=== PATIENT | female | born 1995 | race Caucasian/White ===

== ENCOUNTER 2016-07-11 09:47 | Day surgery (SDC) | payer OTHER, MEDICAID ==
[2016-07-05 10:58] LABS: ABSOLUTE EOSINOPHILS # (AUTO) 0.1 10^3/uL (0.0-0.6); ABSOLUTE MONOCYTES (AUTO) 0.3 10^3/uL (0.1-1.4); ABSOLUTE NEUT (AUTO) 2.2 10^3/uL (1.7-8.2); BASOPHILS % (AUTO) 0.4 % (0-2); EOSINOPHILS % (AUTO) 3.2 % (0-6); HEMATOCRIT 34.3 % (36.0-47.0); HEMOGLOBIN 11.6 g/dL (12.0-15.5); HGB HCT DIFFERENCE 0.5; LYMPHOCYTES % (AUTO) 42.2 % (13-45); MEAN CORPUSCULAR HEMOGLOBIN 30.6 pg (27.0-33.4); MEAN CORPUSCULAR HGB CONC 33.9 g/dL (32.0-36.0); MEAN CORPUSCULAR VOLUME 91 fl (80-97); MONOCYTES % (AUTO) 6.6 % (3-13); RED BLOOD COUNT 3.79 10^6/uL (3.72-5.28); RED CELL DISTRIBUTION WIDTH 15.2 % (11.5-14.0); SEGMENTED NEUTROPHILS % (AUTO) 47.6 % (42-78); WHITE BLOOD COUNT 4.6 10^3/uL (4.0-10.5)
[2016-07-05 11:01] LABS: APPEARANCE,URINE CLEAR; BILIRUBIN,URINE NEGATIVE (NEGATIVE); GLUCOSE, URINE NEGATIVE (NEGATIVE); KETONES,URINE NEGATIVE (NEGATIVE); LEUKOCYTE ESTERASE,URINE TRACE (NEGATIVE); NITRITE,URINE NEGATIVE (NEGATIVE); PROTEIN,URINE NEGATIVE (NEGATIVE); URINE SPECIFIC GRAVITY 1.017; UROBILINOGEN,URINE NEGATIVE mg/dL (<2.0)
[~2016-07-11 09:47] MED LIST: LACTATED RINGERS 1000 ML IV PRN; LIDOCAINE 0.5% INJ-PF (5 MG/ML) 50 ML SDV SUBCUT PRN
[2016-07-11] MEDS ORDERED: MIDAZOLAM 2 MG/2 ML INJ ONE ×2 (11:04→13:42)
[2016-07-11] MEDS ORDERED: FAMOTIDINE INJ/PF 20 MG/2 ML SDV IV ONE (11:04)
[2016-07-11] MEDS ORDERED: PROPOFOL INJ 200 MG/20 ML VIAL IV ONE (13:43)
[2016-07-11] MEDS ORDERED: FENTANYL CITRATE INJ/PF 100 MCG/2 ML AMPUL ONE (13:43)
[2016-07-11] MEDS ORDERED: HYDROMORPHONE HCL INJ/PF 2 MG/ML AMPULE ONE ×2 (13:53→15:34)
[2016-07-11] MEDS ORDERED: MEPERIDINE HCL/PF INJ 25 MG/1 ML DISP.SYRIN IV PRN (14:10)
[2016-07-11] MEDS ORDERED: DIPHENHYDRAMINE HCL 50 MG/ML VIAL IV PRN (14:10)
[2016-07-11] MEDS ORDERED: PROMETHAZINE HCL INJ 25 MG/1 ML VIAL IV PRN ×2 (14:10)
--- NOTE | 2016-07-11 14:58 | OPERATIVE REPORT E ---
Operative Report NAME: ANGELLA AGARWAL : 1995 AGE: 20Y DATE OF SURGERY: 07/11/2016 ROOM: PREOPERATIVE DIAGNOSIS: Multiple medical comorbidities and undesired fertility. POSTOPERATIVE DIAGNOSIS: Multiple medical comorbidities and undesired fertility. PROCEDURE: Laparoscopic tubal cauterization. SURGEON: KRISTIAN BROOKS M.D. CUT OUT AND MARKING MACHINE OPERATOR: Quiana Bach, carpenter's assistant student. ANESTHESIA: Dr. Escamilla with general endotracheal. FINDINGS: Normal uterus, tubes and ovaries. Multiple adhesions in the upper abdomen. Gallbladder is absent. Noted to have small amount of endometrial implants in posterior cul-de-sac near the uterosacral ligaments. ESTIMATED BLOOD LOSS: 10 mL. SPECIMENS REMOVED: None. 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 She has undergone multiple abdominal surgeries for this condition, has been diagnosed again with liver cancer as well as gallbladder cancer. She has had to have chemo and radiation multiple times. She has consulted with her oncologist who indicates that her ability to bear children would increase her risk of mortality; therefore, she and her mother came to the office seeking advice from Dr. Hurt and desiring permanent sterilization in order to avoid . Dr. Hurt met with both of them on 2 occasions at least in the office, and the patient indicated that she did not feel it would be safe for her to carry a . She indicated this to me today just prior to her surgery and her mother was there and in agreement. Therefore, we went ahead with permanent sterilization. She was counseled extensively on each of these occasions on the availability of long-acting reversible contraception and she declined at all 3 occasions. PROCEDURE IN DETAIL: The patient was taken to the operating room, prepared and draped in a normal sterile fashion in dorsal lithotomy position under sterile conditions. The bladder was emptied of approximately 150 mL of clear urine. A sterile speculum was placed in the vagina and the cervix was prepped with Betadine. The cervix was then grasped on the anterior lip with a single-tooth tenaculum and a Hulka clamp was placed through the cervix for uterine manipulation. The speculum was removed, gloves were changed, and attention was then turned to the upper portion of the case where a supraumbilical skin incision was made just below the umbilicus, through which a cut-down procedure was performed to enter the peritoneal cavity. This was done with care and with no evidence of injury. A blunt trocar was placed through the opening and the abdomen was insufflated with approximately 1 L of CO2 gas to a pressure of 15 mmHg. The camera was introduced, the patient was placed in Trendelenburg, and the above findings were noted. We then placed another 5-mm port midline just above the bladder for the Kleppinger to manipulate through. The uterus was elevated and the Kleppinger was introduced. At this point the patient began to show some evidence of bradycardia so we did deflate the abdomen and paused the case while the patient was recovered by Anesthesia. This was done successfully. We did not insufflate any further, however, as visualization was adequate, and the Kleppinger was used to burn approximately 3 cm on each fallopian tube with good cautery noted. The Kleppinger was removed and the trocars were then removed without difficulty. The skin was then closed at both sites using 4-0 Vicryl. The patient tolerated the procedure well. Sponge, lap, and needle counts were correct x2. The patient was taken to recovery in stable condition. DICTATING PHYSICIAN: KRISTIAN BROOKS M.D. [id number] PHY#: [id number] ID: [id number] JOB#: [id number] ACCT: [id number] cc:KRISTIAN BROOKS M.D. >
[2016-07-11] MEDS ORDERED: MORPHINE SULFATE 10 MG/ML INJ ONE (15:13)
[2016-07-11] MEDS ORDERED: OXYCODONE-ACETAMINOPHEN 5-325 MG TABLET PO PRN ×2 (15:17→15:18)
[2016-07-11] MEDS ORDERED: IBUPROFEN 800 MG TABLET PO PRN (15:17)
[2016-07-11] MEDS ORDERED: GLYCOPYRROLATE INJ 0.4 MG/2 ML VIAL ONE (16:16)
[2016-07-11] MEDS ORDERED: KETOROLAC TROMETHAMINE 60 MG/2 ML SDV ONE (16:16)
[2016-07-11] MEDS ORDERED: ONDANSETRON HCL INJ/PF 4 MG/2 ML SDV ONE (16:16)
[2016-07-11] MEDS ORDERED: DEXAMETHASONE SOD PHOSPHATE INJ 4 MG/1 ML VIAL ONE (16:16)
[2016-07-11] MEDS ORDERED: SUCCINYLCHOLINE CHLORIDE INJ 200 MG/10 ML VIAL ONE (16:16)
[2016-07-11] MEDS ORDERED: KETOROLAC TROMETHAMINE INJ/PF 30 MG/1 ML SDV ONE (16:25)
[2016-07-11 17:22] VITALS: BP 111/79
== END 2016-07-11 17:25 | disposition home or self-care (01) ==
LOC: OROUT 09:47
PROVIDERS: ATTEND Obstetrics & Gynecology
PROC: 0U574ZZ Destruction of Bilateral Fallopian Tubes, Percutaneous Endoscopic Approach (ICD-10-PCS; principal; 2016-07-11 11:45)
DX: Z30.2 Encounter for sterilization (principal); Z85.05 Personal history of malignant neoplasm of liver; Z88.8 Allergy status to other drugs, medicaments and biological substances; Z87.892 Personal history of anaphylaxis; Z91.041 Radiographic dye allergy status; Z85.028 Personal history of other malignant neoplasm of stomach
CPT/HCPCS: 36415; 85025; 81005; 81025; 58670; J2250; J1100; J1885 ×2; J3010; J2270; J1170; J0330; J2405; J2704; S0028; 851

== ENCOUNTER 2020-05-11 02:44 | Inpatient (IN) | payer SELFPAY ==
[2020-05-11] MEDS ORDERED: NORMAL SALINE 1000 ML 1,000 ML IV ONE ×2 (04:41→06:46)
[2020-05-11] MEDS ORDERED: PROMETHAZINE HCL INJ 25 MG/1 ML VIAL IV ONE ×3 (04:41→12:02)
[2020-05-11] MEDS ORDERED: MORPHINE SULFATE 10 MG/ML INJ IV ONE ×4 (04:42→12:02)
--- NOTE | 2020-05-11 04:48 | ER Document Report ---
ED GI/ - General Mode of Arrival: Medic Information source: Patient TRAVEL OUTSIDE OF THE [place] IN LAST 30 DAYS: No - HPI Patient complains to provider of: Abdominal pain, Vomiting Onset: Other - 2 days Timing/Duration: Worse Quality of pain: Sharp Pain Level: 5 Location: Epigastric Vaginal bleeding (Compared to normal period): None Associated symptoms: Nausea, Vomiting. denies: Diarrhea, Urinary hesitancy, Urinary frequency, Urinary retention, Urinary urgency, Vaginal discharge Exacerbated by: Movement Relieved by: Denies Similar symptoms previously: Yes Recently seen / treated by doctor: No <BRENDA WILDE - Last Filed: 05/11/20 08:13> <ISAAC PERERA - Last Filed: 05/11/20 13:16> - General Chief Complaint: Nausea/Vomiting Stated Complaint: VOMITING,ABDOMINAL PAIN Time Seen by Provider: 05/11/20 04:12 Notes: Patient presents with a history of GI stromal tumors with liver mets. Patient states that she was doing oral chemotherapy but finished treatment 6 years ago. Patient states that she has had numerous surgeries including a cholecystectomy hysterectomy diaphragm repair and sterilization. Patient reports having abdominal pain for the past 2 days with nausea and vomiting numerous episodes. Patient denies any diarrhea. Patient states today she felt a pop in her abdomen to the epigastric area. Patient denies any fever or urinary symptoms. (BRENDA WILDE) - Related Data Allergies/Adverse Reactions: cimetidine [From Tagamet] Allergy (Intermediate, Verified 07/02/16 15:43) fentanyl Allergy (Verified 07/02/16 15:49) VOMITING Iodine and Iodide Containing Produc Allergy (Verified 07/02/16 15:43) iron Allergy (Verified 07/02/16 15:49) Anaphylaxis vancomycin Allergy (Verified 07/02/16 15:43) ondansetron Adverse Reaction (Verified 07/02/16 15:43) VOMITING Past Medical History - General Information source: Patient - Social History Smoking Status: Never Smoker Frequency of alcohol use: Rare Drug Abuse: None Occupation: None Lives with: Family Family History: Reviewed & Not Pertinent - Past Medical History Cardiac Medical History: Denies: Hx Coronary Artery Disease, Hx Heart Attack, Hx Hypertension Pulmonary Medical History: Reports: Hx Pneumonia Denies: Hx Asthma, Hx Bronchitis, Hx COPD Neurological Medical History: Denies: Hx Cerebrovascular Accident, Hx Seizures Malignancy Medical History: Reports: Other - GIST with liver mets Musculoskeletal Medical History: Reports Hx Arthritis - generalized Past Surgical History: Reports: Hx Bowel Surgery - gastrectomy, Hx Cholecystectomy, Hx Neurologic Surgery - Brain swanoma, Hx Tubal Ligation - Immunizations Hx Diphtheria, Pertussis, Tetanus Vaccination: No <ANDRYBRENDA [place] - Last Filed: 05/11/20 08:13> Physical Exam - General General appearance: Alert In distress: Mild - HEENT Head: Normocephalic, Atraumatic Eyes: Normal Conjunctiva: Normal Nasal: Normal Mouth/Lips: Normal Mucous membranes: Normal Neck: Normal, Supple - Respiratory Respiratory status: No respiratory distress Chest status: Nontender Breath sounds: Normal. No: Rales, Rhonchi, Stridor, Wheezing Chest palpation: Normal - Cardiovascular Rhythm: Regular Heart sounds: S1 appreciated, S2 appreciated - Abdominal Inspection: Other - Scars to abdomen from prior surgeries Distension: No distension Bowel sounds: Normal Tenderness: Tender - Epigastric tenderness, quadrant tenderness, Guarding Organomegaly: No organomegaly - Back Back: Normal, Nontender - Extremities General upper extremity: Normal inspection, Normal strength General lower extremity: Normal inspection, Normal strength - Neurological Neuro grossly intact: Yes Cognition: Normal [place] Coma Scale Eye Opening: Spontaneous [place] Coma Scale Verbal: Oriented [place] Coma Scale Motor: Obeys Commands [place] Coma Scale Total: 15 - Psychological Associated symptoms: Normal affect, Normal mood - Skin Skin Temperature: Warm Skin Moisture: Dry Skin Color: Pale <ANDRY,KELABDONVÍCTOR - Last Filed: 05/11/20 08:13> - Vital signs Vitals: BP 138/83 H 05/11/20 02:47 Course - Laboratory Results Result Diagrams: 05/11/20 02:56 05/11/20 02:56 Critical Laboratory Results Reviewed: No Critical Results - Radiology Results Critical Radiology Results Reviewed: No Critical Results <BRENDA WILDE - Last Filed: 05/11/20 08:13> - Laboratory Results Result Diagrams: 05/11/20 02:56 05/11/20 02:56 <ISAAC PERERA - Last Filed: 05/11/20 13:16> - Re-evaluation Re-evalutation: 05/11/20 04:47 Patient states she has severe allergic reaction to IV contrast and oral contrast and can only do noncontrasted studies 05/11/20 06:52 Patient with lipase of over [address] scan worrisome for acute pancreatitis. Patient without any other acute findings on CT imaging. Patient is anemic with hemoglobin of 6.4. Patient states that she is allergic to oral iron supplements and had an anaphylactic reaction to IV iron. Patient does report chronic anemia due to previous gastric surgery. Patient with negative occult blood stool test. With stable vital signs. 05/11/20 07:[address] Schafer who recommends consultation with heme-onc at [facility] as this is where patient had previously been managed in the past to discuss whether or not patient can be managed here or would require transfer given her complex history, chronic anemia, history of gastrectomy and allergies to supplemental iron preparations. Call placed to [facility] for consultation with heme-onc. 05/11/20 07:[address] Doug Shaffer at [facility] who is on-call for heme-onc who recommends transfusing patient 2 units of packed cells to manage her anemia as this will also incidentally boost her iron. He does recommend obtaining an MRI with and without contrast of the abdomen to evaluate her against with liver mets. He states that patient had stable findings on her prior MRI from 2018. He recommends consulting for transfer if there are any significant abnormalities on her MRI concerning her liver mets. 05/11/20 08:13 Report and handoff given to Isaac magana WARP TYING MACHINE TENDER (BRENDA WILDE) 05/11/20 12:07 The patient has some small nodules noted to her liver, concerning for metastatic disease. Called [facility] transfer center to speak with heme-onc. 05/11/20 12:[address] Morgan from heme-onc. At this time the lesion has not changed from her previous MRI in 2018. At this time, will call Dr. Root for 05/11/20 12:[address] Barrios, the oncologist substation operator helper generation. We will add a reticulocyte count. Will call hospitalist for admission. 05/11/20 12:[address] Batista, the hospitalist. He will give me a call back. 05/11/20 13:[address] Batista, the patient will be admitted to the medical floor. (ISAAC PERERA) - Vital Signs Vital signs: Temp Pulse Resp BP Pulse Ox 98.5 F 107 H 12 135/93 H 99 05/11/20 06:52 05/11/20 12:39 05/11/20 12:39 05/11/20 12:39 05/11/20 12:39 - Laboratory Results Laboratory Results Interpreted: 05/11/20 05/11/20 05/11/20 02:56 02:56 02:56 RBC 2.82 L Hgb 6.4 L Hct 21.4 L MCV 76 L MCH 22.7 L MCHC 30.0 L RDW 23.9 H Plt Count 122 L Lymph % (Auto) 6.1 L Reticulocyte # 0.020 L Seg Neutrophils % 90.2 H Sodium 134.0 L Chloride 97 L Creatinine 0.41 L Glucose 127 H AST 38 H Lipase 7273.7 H Urine Protein Urine Ketones Urine Urobilinogen Crossmatch 05/11/20 05/11/20 05:35 06:25 RBC Hgb Hct MCV MCH MCHC RDW Plt Count Lymph % (Auto) Reticulocyte # Seg Neutrophils % Sodium Chloride Creatinine Glucose AST Lipase Urine Protein 100 H Urine Ketones 80 H Urine Urobilinogen 4.0 H Crossmatch See Detail Discharge <BRENDA WILDE - Last Filed: 05/11/20 08:13> - Discharge Admitting Provider: Lester (Hospitalist) Unit Admitted: Medical Floor <ISAAC PERERA - Last Filed: 05/11/20 13:16> - Discharge Clinical Impression: Pancreatitis Qualifiers: Chronicity: acute Pancreatitis type: unspecified pancreatitis type Acute pancreatitis complication: unspecified Qualified Code(s): K85.90 - Acute pancreatitis without necrosis or infection, unspecified Condition: Stable Disposition: ADMITTED INPATIENT
[2020-05-11 05:22] LABS: ALBUMIN 4.1 g/dL (3.5-5.0); ALKALINE PHOSPHATASE 68 U/L (38-126); ANION GAP 11 (5-19); ASPARTATE AMINO TRANSFERASE 38 U/L (14-36); BILIRUBIN,DIRECT 0.2 mg/dL (0.0-0.4); BILIRUBIN,TOTAL 1.1 mg/dL (0.2-1.3); BLOOD UREA NITROGEN 15 mg/dL (7-20); CALCIUM 9.1 mg/dL (8.4-10.2); CARBON DIOXIDE 26 mmol/L (22-30); CHLORIDE 97 mmol/L (98-107); GLUCOSE 127 mg/dL (75-110); POTASSIUM 4.1 mmol/L (3.6-5.0); TOTAL PROTEIN 7.5 g/dL (6.3-8.2)
[2020-05-11 05:31] LABS: ABSOLUTE LYMPHOCYTES (AUTO) 0.5 10^3/uL (0.5-4.7); ABSOLUTE MONOCYTES (AUTO) 0.3 10^3/uL (0.1-1.4); ABSOLUTE NEUT (AUTO) 6.9 10^3/uL (1.7-8.2); BASOPHILS % (AUTO) 0.2 % (0-2); HEMATOCRIT 21.4 % (36.0-47.0); LYMPHOCYTES % (AUTO) 6.1 % (13-45); MEAN CORPUSCULAR HEMOGLOBIN 22.7 pg (27.0-33.4); MEAN CORPUSCULAR VOLUME 76 fl (80-97); MONOCYTES % (AUTO) 3.5 % (3-13); PLATELET COUNT 122 10^3/uL (150-450); RED BLOOD COUNT 2.82 10^6/uL (3.72-5.28); RED CELL DISTRIBUTION WIDTH 23.9 % (11.5-14.0); SEGMENTED NEUTROPHILS % (AUTO) 90.2 % (42-78); TOTAL CELLS COUNTED % (AUTO) 100 %; WHITE BLOOD COUNT 7.7 10^3/uL (4.0-10.5)
[2020-05-11 05:47] LABS: HEMOGLOBIN 6.4 g/dL (12.0-15.5)
[2020-05-11 05:55] LABS: APPEARANCE,URINE CLEAR; BILIRUBIN,URINE NEGATIVE (NEGATIVE); COLOR,URINE YELLOW; GLUCOSE, URINE NEGATIVE (NEGATIVE); KETONES,URINE 80 mg/dL (NEGATIVE); LEUKOCYTE ESTERASE,URINE NEGATIVE (NEGATIVE); NITRITE,URINE NEGATIVE (NEGATIVE); PROTEIN,URINE 100 mg/dL (NEGATIVE); URINE SPECIFIC GRAVITY 1.028
--- NOTE | 2020-05-11 06:07 | RADIOLOGY REPORT (SQ) ---
CT abdomen and pelvis without contrast on 05/11/2020 at 5:20 AM CLINICAL INDICATION: Upper abdominal pain, history of GI stromal tumor with liver metastasis TECHNIQUE: Multiple axial images are obtained throughout the abdomen and pelvis without the administration of contrast. This exam was performed according to our departmental dose-optimization program, which includes automated exposure control, adjustment of the mA and/or kV according to patient size and/or use of iterative reconstruction technique. Total DLP is 259.16 mGy*cm. COMPARISON: None FINDINGS: Abdomen: The lung bases are clear. There is a small hiatal hernia. The patient is status post gastric bypass surgery. There is extensive peripancreatic fluid and stranding in the abdomen with also extensive fluid and stranding extending elsewhere favored to all be related to changes of significant acute pancreatitis and please correlate with patient's laboratory values. Edema extends up into the posterior mediastinum around the patient's hiatal hernia as well. The patient is likely status post cholecystectomy. There is no evidence of internal hernia or obstruction. The unenhanced solid abdominal organs are otherwise unremarkable. There is no abdominal adenopathy. There is some wall thickening of loops of bowel favored to be secondarily inflamed from the pancreatitis rather than a primary GI tract abnormality. Pelvis: The uterus is retroverted/retroflexed. Pelvic organs otherwise appear unremarkable by CT. Small amount of free fluid is noted in the pelvis. Pelvic portion of the GI tract including the appendix is otherwise unremarkable. Degenerative changes and levoscoliosis is noted in the lumbar spine. No acute bony abnormality is noted. IMPRESSION: 1. Findings most consistent with severe changes of acute pancreatitis with extensive stranding and fluid in the abdomen extending down into the pelvis. This is likely secondarily inflaming loops of bowel in the abdomen even into the right lower quadrant rather than a primary bowel abnormality. Please correlate with patient's amylase and lipase values. 2. No other acute abnormality.
[2020-05-11] MEDS ORDERED: NORMAL SALINE 250 ML IV PRN ×2 (07:58)
[2020-05-11] MEDS ORDERED: HYDROCORTISONE SOD SUCCINATE INJ/PF 100 MG/2 ML SDV IV ONE (09:28)
[2020-05-11] MEDS ORDERED: FAMOTIDINE INJ/PF 20 MG/2 ML SDV IV ONE (09:28)
[2020-05-11] MEDS ORDERED: DIPHENHYDRAMINE HCL 50 MG/ML VIAL IV ONE (09:28)
--- NOTE | 2020-05-11 11:00 | RADIOLOGY REPORT (SQ) ---
EXAM DESCRIPTION: MRI ABDOMEN COMBO IMAGES COMPLETED DATE/TIME: 05/11/2020 10:27 am REASON FOR STUDY: GIST, hx liver mets, abd pain, pancreatitis COMPARISON: None. TECHNIQUE: Multiplanar multisequence imaging performed without and with contrast including sagittal, axial and coronal T2, axial T1, axial gradient fat sat T1, axial, sagittal and coronal fat sat T1 po st contrast. CONTRAST TYPE AND DOSE: 20 mL Prohance. RENAL FUNCTION: Not indicated. ACR Type II contrast agent associated with few, if any, unconfounded cases of NSF LIMITATIONS: Motion. FINDINGS: LIVER: Normal size. There are 3, possibly 4 well-circumscribed nodules which are high-sig nal T2 and enhance. These are easiest to visualize on T2 weighted sequence series 3. Largest is 6 m m in segment 8. No dilated ducts. SPLEEN: Normal size. No focal lesions. PANCREAS: Inflammatory changes consistent with pancreatitis. No ductal dilatation. GALLBLADDER: Not visualized. ADRENAL GLANDS: No significant masses or asymmetry. RIGHT KIDNEY AND URETER: No masses. No hydronephrosis. LEFT KIDNEY AND URETER: No masses. No hydronephrosis. AORTA AND VESSELS: No aneurysm. RETROPERITONEUM: No retroperitoneal adenopathy, hemorrhage or masses. BOWEL: No visualized masses. No inflammation. No significant dilatation. ABDOMINAL WALL AND PERITONEUM: Trace amount of ascites. BONES: No acute or significant findings. OTHER: No other significant finding. IMPRESSION: 1. Small liver nodules suspicious for metastatic disease. These are too small for CT-guided biopsy. Trace of ascites. 2. Acute pancreatitis. TECHNICAL DOCUMENTATION: JOB ID: [id number] 2010 [employer]- All Rights Reserved Reading location - IP/workstation name: [email or web address]
[2020-05-11 13:01] LABS: RETICULOCYTE COUNT (AUTO) 0.74 % (0.66-2.85)
[2020-05-11 13:52] LABS: IRON(TIBC) 215.9 ug/dL (37-170)
[2020-05-11 14:58] LABS: FOLATE 6.46 ng/mL (>2.76)
[2020-05-11] MEDS ORDERED: GLUCAGON,HUMAN RECOMB 1 MG INJ SUBCUT PRN (15:31)
[2020-05-11] MEDS ORDERED: DEXTROSE 40% GEL 15 GM TUBE PO PRN ×2 (15:31)
[2020-05-11] MEDS ORDERED: DEXTROSE 50%-WATER 25 GM/50 ML DISP.SYRIN IV PRN ×2 (15:31)
[2020-05-11] MEDS ORDERED: ACETAMINOPHEN 325 MG TABLET PO PRN (15:31)
[2020-05-11] MEDS ORDERED: ZOLPIDEM TARTRATE 5 MG TABLET PO PRN (15:44)
--- NOTE | 2020-05-11 16:14 | PDOC H&P ---
History of Present Illness Admission Date/PCP: 05/11/20 13:41 Patient complains of: abd pain, n/v History of Present Illness: ANGELLA AGARWAL is a 24 year old female with complex medical history including GIST with liver mets s/p gastrectomy, Skull fracture and Schwanoma s/p briain surgery, Anemia, Pancreatitis [unknown etiology], presents today with complaints of abdominal pain, nausea and vomiting. Symptoms started couple days ago and have progressed. The abdominal pain is across her upper abdomen, sharp, 10/10 at its worst and radiating to the back. No clear alleviating factors. Morphine she received earlier helped. She denies any fever or chills. Denies any abdominal bloating. She has had a few bouts of nonbloody vomiting. Notably she has had a gastrectomy for treatment of her GIST tumor which was diagnosed when she was 9. She had the surgery when she was 11. She had metastasis to the liver but has been undergoing surveillance since. Followed at [facility] but has not followed up in the past 2 to 3 years after losing her insurance coverage. She states that she has had a few bouts of pancreatitis but the etiology has not been discovered and she was told that it was due to abdominal problems and procedures. She denies any GI bleed. She does states she has had history of heavy menstruation but her menstrual periods in the past few months have not been excessive. She states that have hemoglobin used to be quite low in the 7s when she was in her teens but had improved since then. In the ER, patient was noted to have elevated lipase and findings of acute pancreatitis. Abdominal MRI done in the ER also showed liver metastasis but after the ER provider discussed with oncology at [facility], they notified her that the size was still stable. Past Medical History Cardiac Medical History: Denies: Coronary Artery Disease, Myocardial Infarction, Hypertension Pulmonary Medical History: Reports: Pneumonia Denies: Asthma, Bronchitis, Chronic Obstructive Pulmonary Disease (COPD) Neurological Medical History: Denies: Seizures Malignancy Medical History: Reports: Brain Cancer, Other - GIST with liver mets Musculoskeltal Medical History: Reports: Arthritis - generalized Hematology: Reports: Anemia Past Surgical History Past Surgical History: Reports: Cholecystectomy, Tubal Ligation, Other - Brain surgery Social History Lives with: Family Smoking Status: Never Smoker Frequency of Alcohol Use: Social Hx Recreational Drug Use: No - Advance Directive Resuscitation Status: Full Code Family History Family History: Malignancy Parental Family History Reviewed: Yes Children Family History Reviewed: Yes Sibling(s) Family History Reviewed.: Yes Medication/Allergy Home Medications: Promethazine HCl [Phenergan 25 mg Tablet] 25 mg PO DAILYP PRN 10/26/13 Acetaminophen [Tylenol] 325 mg PO Q4HP PRN 05/11/20 Diphenhydramine HCl [Benadryl] 50 mg PO QHS 05/11/20 Allergies/Adverse Reactions: cimetidine [From Tagamet] Allergy (Intermediate, Verified 07/02/16 15:43) fentanyl Allergy (Verified 07/02/16 15:49) VOMITING Iodine and Iodide Containing Produc Allergy (Verified 07/02/16 15:43) iron Allergy (Verified 07/02/16 15:49) Anaphylaxis vancomycin Allergy (Verified 07/02/16 15:43) ondansetron Adverse Reaction (Verified 07/02/16 15:43) VOMITING Review of Systems Constitutional: ABSENT: anorexia, chills, fever(s) Eyes: ABSENT: visual disturbances Ears: ABSENT: hearing changes Nose, Mouth, and Throat: ABSENT: headache(s), sore throat Cardiovascular: ABSENT: chest pain Respiratory: PRESENT: cough - Describes that it feels more like nausea that triggers this Gastrointestinal: PRESENT: abdominal pain, nausea, vomiting Genitourinary: ABSENT: dysuria Integumentary: ABSENT: diaphoresis Neurological: ABSENT: dizziness Endocrine: ABSENT: polydipsia Hematologic/Lymphatic: ABSENT: easy bleeding Allergic/Immunologic: PRESENT: seasonal rhinorrhea Physical Exam Vital Signs: Temp Pulse Resp BP Pulse Ox 98.5 F 102 H 10 L 136/96 H 98 05/11/20 06:52 05/11/20 13:40 05/11/20 15:01 05/11/20 15:00 05/11/20 15:01 Intake & Output 05/10/20 05/11/20 05/12/20 06:59 06:59 06:59 Intake Total 1000 1000 Balance 1000 1000 Weight 53.07 kg General appearance: PRESENT: no acute distress, cooperative Eye exam: PRESENT: EOMI Neck exam: ABSENT: JVD Respiratory exam: PRESENT: clear to auscultation christina, symmetrical, unlabored. ABSENT: accessory muscle use, tachypnea, wheezes Cardiovascular exam: PRESENT: RRR, +S1, +S2. ABSENT: tachycardia GI/Abdominal exam: PRESENT: soft, tenderness. ABSENT: ascites, firm, guarding, hernia, rebound, rigid Extremities exam: ABSENT: calf tenderness, pedal edema Neurological exam: PRESENT: alert, awake, oriented to person, oriented to place, oriented to time, oriented to situation Psychiatric exam: ABSENT: agitated, anxious Focused psych exam: ABSENT: pressured speech Skin exam: ABSENT: jaundice Results Laboratory Results: 05/11/20 02:56 05/11/20 02:56 05/11/20 05/11/20 05/11/20 02:56 02:56 02:56 WBC 7.7 RBC 2.82 L Hgb 6.4 L Hct 21.4 L MCV 76 L MCH 22.7 L MCHC 30.0 L RDW 23.9 H Plt Count 122 L Seg Neutrophils % 90.2 H Retic Count (auto) 0.74 Sodium 134.0 L Potassium 4.1 Chloride 97 L Carbon Dioxide 26 Anion Gap 11 BUN 15 Creatinine 0.41 L Est GFR ( Amer) > 60 Glucose 127 H Calcium 9.1 Iron TIBC % Saturation Ferritin Total Bilirubin 1.1 AST 38 H Alkaline Phosphatase 68 Total Protein 7.5 Albumin 4.1 Lipase 7273.7 H Vitamin B12 Folate Urine Color Urine Appearance Urine pH Ur Specific [place] Urine Protein Urine Glucose (UA) Urine Ketones Urine Blood Urine Nitrite Ur Leukocyte Esterase Urine WBC (Auto) Urine RBC (Auto) Blood Type Antibody Screen 05/11/20 05/11/20 05/11/20 02:56 05:35 06:25 WBC RBC Hgb Hct MCV MCH MCHC RDW Plt Count Seg Neutrophils % Retic Count (auto) Sodium Potassium Chloride Carbon Dioxide Anion Gap BUN Creatinine Est GFR ( Amer) Glucose Calcium Iron 215.9 H TIBC 507 H % Saturation 43 Ferritin 8.40 Total Bilirubin AST Alkaline Phosphatase Total Protein Albumin Lipase Vitamin B12 < 159.0 L Folate 6.46 Urine Color YELLOW Urine Appearance CLEAR Urine pH 6.0 Ur Specific [place] 1.028 Urine Protein 100 H Urine Glucose (UA) NEGATIVE Urine Ketones 80 H Urine Blood NEGATIVE Urine Nitrite NEGATIVE Ur Leukocyte Esterase NEGATIVE Urine WBC (Auto) 1 Urine RBC (Auto) 1 Blood Type A POSITIVE Antibody Screen NEGATIVE Impressions: Abdomen/Pelvis CT 05/11/20 04:44 IMPRESSION: 1. Findings most consistent with severe changes of acute pancreatitis with extensive stranding and fluid in the abdomen extending down into the pelvis. This is likely secondarily inflaming loops of bowel in the abdomen even into the right lower quadrant rather than a primary bowel abnormality. Please correlate with patient's amylase and lipase values. 2. No other acute abnormality. Abdomen MRI 05/11/20 07:58 IMPRESSION: 1. Small liver nodules suspicious for metastatic disease. These are too small for CT-guided biopsy. Trace of ascites. 2. Acute pancreatitis. Assessment and Plan - Diagnosis (1) Acute pancreatitis Qualifiers: Pancreatitis type: unspecified pancreatitis type Acute pancreatitis complication: no infection or necrosis Qualified Code(s): K85.90 - Acute pancreatitis without necrosis or infection, unspecified Is this a current diagnosis for this admission?: Yes Plan: Abdominal pain typical, elevated lipase and CT findings consistent with pancreatitis. Aggressive IV fluid hydration, morphine IV as needed Monitor I's and O's N.p.o. for now. We will gradually reintroduce diet as tolerated Antiemetics No evidence of biliary tract obstruction via labs and imaging. No pancreatic mass noted on MRI. Check triglyceride level. She does not drink excessively but still complete alcohol cessation encouraged (2) Metastasis to liver Is this a current diagnosis for this admission?: Yes Plan: Has history of GIST with mets to the liver. Oncology at [facility] has noted that this is stable in size as compared to 2018. She is meant to be receiving routine surveillance but she states she has not followed up in 2 years due to insurance issues at the time. Outpatient oncology follow-up (3) Acute on chronic anemia Is this a current diagnosis for this admission?: Yes Plan: Hemoglobin was 6.7. Potential etiologies include B12 deficiency. Interestingly her iron saturation is quite high but her ferritin level is quite low. I confirmed that lab was drawn before blood transfusion. She has had history of menorrhagia in the past but not in the past 6 months to a year. Denies GI bleed Hematology consulted She is currently undergoing blood transfusion (4) B12 deficiency Is this a current diagnosis for this admission?: Yes Plan: Secondary to gastrectomy. Start on cyanocobalamin. (5) Thrombocytopenia Is this a current diagnosis for this admission?: Yes - Time Time Spent with patient: 35 or more minutes Anticipated Discharge Disposition: Home, Self Care Anticipated Discharge Timeframe: within 72 hours
[2020-05-11] MEDS ORDERED: CYANOCOBALAMIN (VITAMIN B-12) INJ 1000 MCG/1 ML VIAL IM ONE ×2 (16:30→20:30)
[2020-05-11] MEDS: RINGERS SOLUTION,LACTATED 1,000 ML IV PRN (17:06)
[2020-05-11] MEDS: MORPHINE SULFATE 10 MG/ML INJ IV PRN ×2 (17:19→21:42)
[2020-05-11] MEDS: PROMETHAZINE HCL INJ 25 MG/1 ML VIAL IV PRN ×2 (17:20→21:42)
--- NOTE | 2020-05-11 19:25 | PDOC CONSULTATION ---
Consultation Consult Date: 05/11/20 Provider Consulted: LISA MONTIEL Consult reason:: Hematology/Oncology consult was requested for patient with history of cancer and new anemia. History of Present Illness Admission Date/PCP: 05/11/20 13:41 History of Present Illness: ANGELLA AGARWAL is a 24 year old female with complex medical history including GIST with liver mets s/p gastrectomy, diagnosed at age 9, Skull fracture and Schwanoma s/p brain surgery, Anemia due to B12 and iron deficiencies, and Pancreatitis [unknown etiology]. Patient states that she has had no active treatment for the GIST in over 18 months and the last meidcation was stopped as it was causing recurrent pancreatitis. She presented with complaints of abdominal pain, nausea and vomiting. Symptoms started couple days ago and have progressed.She has had a few bouts of nonbloody vomiting. She was followed at [facility] for her cancer but has not followed up in the past 2 to 3 years after losing her insurance coverage. She has required blood transfusions, IM B12 and IV iron in the past, but again has not had any for at least 18 months. On admission, her HGB was 6.4 and ferritin and B12 were both quite low. She is currently receiving blood transfusions. Currently, she is very concerned about her esophagus. She had surgery for hiatal hernia a few years ago and states that she felt a "pop" in her epigastric area with the vomiting. Her last EGD was 2 years ago. The pain medications are working "some." She had an anaphylactic reaction to IV iron in the past, but this was many years ago. She is unable to tolerate oral iron and with her history or gastrectomy, I do not believe oral iron would be beneficial. Past Medical History Cardiac Medical History: Denies: Coronary Artery Disease, Myocardial Infarction, Hypertension Pulmonary Medical History: Reports: Pneumonia Denies: Asthma, Bronchitis, Chronic Obstructive Pulmonary Disease (COPD) Neurological Medical History: Denies: Seizures Malignancy Medical History: Reports: Brain Cancer, Other - GIST with liver mets Musculoskeltal Medical History: Reports: Arthritis - generalized Hematology: Reports: Anemia Past Surgical History Past Surgical History: Reports: Cholecystectomy, Tubal Ligation, Other - brain surgery for Schwannoma, total gastrectomy, hiatal hernia surgery Social History Lives with: Family Smoking Status: Never Smoker Frequency of Alcohol Use: Social Hx Recreational Drug Use: No Past Social History Note: , cats in the home - Advance Directive Resuscitation Status: Full Code Family History Family History: Malignancy Parental Family History Reviewed: Yes - PGF brain tumor. MGF with lung cancer Children Family History Reviewed: NA Sibling(s) Family History Reviewed.: Yes - Brother with asthma Medication/Allergy Home Medications: Promethazine HCl [Phenergan 25 mg Tablet] 25 mg PO DAILYP PRN 10/26/13 Acetaminophen [Tylenol] 325 mg PO Q4HP PRN 05/11/20 Diphenhydramine HCl [Benadryl] 50 mg PO QHS 05/11/20 Allergies/Adverse Reactions: cimetidine [From Tagamet] Allergy (Intermediate, Verified 07/02/16 15:43) fentanyl Allergy (Verified 07/02/16 15:49) VOMITING Iodine and Iodide Containing Produc Allergy (Verified 07/02/16 15:43) iron Allergy (Verified 07/02/16 15:49) Anaphylaxis vancomycin Allergy (Verified 07/02/16 15:43) ondansetron Adverse Reaction (Verified 07/02/16 15:43) VOMITING Review of Systems Constitutional: ABSENT: fever(s), headache(s) Eyes: ABSENT: visual disturbances Ears: ABSENT: hearing changes Nose, Mouth, and Throat: ABSENT: sore throat Cardiovascular: ABSENT: chest pain Respiratory: ABSENT: dyspnea Gastrointestinal: PRESENT: abdominal pain, nausea, vomiting. ABSENT: hematemesis Genitourinary: ABSENT: dysuria Musculoskeletal: ABSENT: joint swelling Integumentary: ABSENT: rash Neurological: PRESENT: weakness Hematologic/Lymphatic: ABSENT: easy bleeding Physical Exam Vital Signs: Temp Pulse Resp BP Pulse Ox 98.4 F 87 11 L 133/85 H 97 05/11/20 15:31 05/11/20 15:40 05/11/20 15:40 05/11/20 15:31 05/11/20 15:40 Intake & Output 05/10/20 05/11/20 05/12/20 06:59 06:59 06:59 Intake Total 1000 1300 Balance 1000 1300 Weight 53.07 kg General appearance: PRESENT: no acute distress, thin Head exam: PRESENT: normocephalic Eye exam: PRESENT: EOMI Mouth exam: PRESENT: dry mucosa Neck exam: ABSENT: lymphadenopathy, tenderness Respiratory exam: PRESENT: clear to auscultation christina, unlabored Cardiovascular exam: PRESENT: RRR Pulses: PRESENT: +1 pedal pulses bilateral GI/Abdominal exam: PRESENT: soft, tenderness - Epigastric Extremities exam: ABSENT: pedal edema Neurological exam: PRESENT: alert, awake, oriented to person, oriented to place, oriented to time, oriented to situation Psychiatric exam: PRESENT: appropriate affect Skin exam: PRESENT: pallor Results Laboratory Results: 05/11/20 02:56 05/11/20 02:56 05/11/20 05/11/20 05/11/20 02:56 02:56 02:56 WBC 7.7 RBC 2.82 L Hgb 6.4 L Hct 21.4 L MCV 76 L MCH 22.7 L MCHC 30.0 L RDW 23.9 H Plt Count 122 L Seg Neutrophils % 90.2 H Retic Count (auto) 0.74 Sodium 134.0 L Potassium 4.1 Chloride 97 L Carbon Dioxide 26 Anion Gap 11 BUN 15 Creatinine 0.41 L Est GFR ( Amer) > 60 Glucose 127 H Calcium 9.1 Iron TIBC % Saturation Ferritin Total Bilirubin 1.1 AST 38 H Alkaline Phosphatase 68 Total Protein 7.5 Albumin 4.1 Triglycerides Lipase 7273.7 H Vitamin B12 Folate Urine Color Urine Appearance Urine pH Ur Specific [place] Urine Protein Urine Glucose (UA) Urine Ketones Urine Blood Urine Nitrite Ur Leukocyte Esterase Urine WBC (Auto) Urine RBC (Auto) Blood Type Antibody Screen 05/11/20 05/11/20 05/11/20 02:56 02:56 05:35 WBC RBC Hgb Hct MCV MCH MCHC RDW Plt Count Seg Neutrophils % Retic Count (auto) Sodium Potassium Chloride Carbon Dioxide Anion Gap BUN Creatinine Est GFR ( Amer) Glucose Calcium Iron 215.9 H TIBC 507 H % Saturation 43 Ferritin 8.40 Total Bilirubin AST Alkaline Phosphatase Total Protein Albumin Triglycerides 200 H Lipase Vitamin B12 < 159.0 L Folate 6.46 Urine Color YELLOW Urine Appearance CLEAR Urine pH 6.0 Ur Specific [place] 1.028 Urine Protein 100 H Urine Glucose (UA) NEGATIVE Urine Ketones 80 H Urine Blood NEGATIVE Urine Nitrite NEGATIVE Ur Leukocyte Esterase NEGATIVE Urine WBC (Auto) 1 Urine RBC (Auto) 1 Blood Type Antibody Screen 05/11/20 06:25 WBC RBC Hgb Hct MCV MCH MCHC RDW Plt Count Seg Neutrophils % Retic Count (auto) Sodium Potassium Chloride Carbon Dioxide Anion Gap BUN Creatinine Est GFR ( Amer) Glucose Calcium Iron TIBC % Saturation Ferritin Total Bilirubin AST Alkaline Phosphatase Total Protein Albumin Triglycerides Lipase Vitamin B12 Folate Urine Color Urine Appearance Urine pH Ur Specific [place] Urine Protein Urine Glucose (UA) Urine Ketones Urine Blood Urine Nitrite Ur Leukocyte Esterase Urine WBC (Auto) Urine RBC (Auto) Blood Type A POSITIVE Antibody Screen NEGATIVE Impressions: Abdomen/Pelvis CT 05/11/20 04:44 IMPRESSION: 1. Findings most consistent with severe changes of acute pancreatitis with extensive stranding and fluid in the abdomen extending down into the pelvis. This is likely secondarily inflaming loops of bowel in the abdomen even into the right lower quadrant rather than a primary bowel abnormality. Please correlate with patient's amylase and lipase values. 2. No other acute abnormality. Abdomen MRI 05/11/20 07:58 IMPRESSION: 1. Small liver nodules suspicious for metastatic disease. These are too small for CT-guided biopsy. Trace of ascites. 2. Acute pancreatitis. Assessment & Plan - Diagnosis (1) Acute on chronic anemia Is this a current diagnosis for this admission?: Yes Plan: B12 and Iron deficiencies. B12 IM has been ordered. She is receiving blood. I would recommend Injectafer 750 mg IV as well. I am not sure what product she received in the past, but since this was several years ago, it may have been an older product. I would pre-med this with benadryl and tylenol, given her histor y of reaction and consider a test dose as well. I have discussed with the patient that I believe she will need B12 IM and IV iron from time to time for the rest of her life and am happy to help arrange these in the future as outpatient. She should continue to follow at [facility] for her cancer. This has been stable, as per recent CTs, per previous notes. (2) Acute pancreatitis Qualifiers: Pancreatitis type: unspecified pancreatitis type Acute pancreatitis complication: no infection or necrosis Qualified Code(s): K85.90 - Acute pancreatitis without necrosis or infection, unspecified Is this a current diagnosis for this admission?: Yes Plan: As per primary team.
[2020-05-11] MEDS: FAMOTIDINE INJ/PF 20 MG/2 ML SDV IV SCH (21:41)
[2020-05-12] MEDS: MORPHINE SULFATE 10 MG/ML INJ IV PRN ×6 (01:49→23:09)
[2020-05-12] MEDS: PROMETHAZINE HCL INJ 25 MG/1 ML VIAL IV PRN ×6 (01:49→23:09)
[2020-05-12 08:21] LABS: ALBUMIN 3.1 g/dL (3.5-5.0); ALKALINE PHOSPHATASE 95 U/L (38-126); ANION GAP 5 (5-19); ASPARTATE AMINO TRANSFERASE 57 U/L (14-36); BILIRUBIN,DIRECT 0.5 mg/dL (0.0-0.4); BILIRUBIN,TOTAL 1.8 mg/dL (0.2-1.3); BLOOD UREA NITROGEN 11 mg/dL (7-20); CALCIUM 8.4 mg/dL (8.4-10.2); CARBON DIOXIDE 28 mmol/L (22-30); CHLORIDE 102 mmol/L (98-107); GLUCOSE 94 mg/dL (75-110); PHOSPHORUS 2.4 mg/dL (2.5-4.5); POTASSIUM 3.2 mmol/L (3.6-5.0); TOTAL PROTEIN 6.1 g/dL (6.3-8.2)
[2020-05-12] MEDS: RINGERS SOLUTION,LACTATED 1,000 ML IV PRN ×2 (10:22→19:26)
[2020-05-12] MEDS: FAMOTIDINE INJ/PF 20 MG/2 ML SDV IV SCH ×2 (10:23→23:27)
[2020-05-12] MEDS: CYANOCOBALAMIN (VITAMIN B-12) INJ 1000 MCG/1 ML VIAL IM SCH (10:24)
[2020-05-12 10:58] LABS: ABSOLUTE LYMPHOCYTES (AUTO) 0.8 10^3/uL (0.5-4.7); ABSOLUTE MONOCYTES (AUTO) 0.1 10^3/uL (0.1-1.4); ABSOLUTE NEUT (AUTO) 3.4 10^3/uL (1.7-8.2); BASOPHILS % (AUTO) 0.4 % (0-2); EOSINOPHILS % (AUTO) 0.3 % (0-6); HEMATOCRIT 25.4 % (36.0-47.0); HEMOGLOBIN 8.2 g/dL (12.0-15.5); MEAN CORPUSCULAR HEMOGLOBIN 24.7 pg (27.0-33.4); MEAN CORPUSCULAR HGB CONC 32.5 g/dL (32.0-36.0); MEAN CORPUSCULAR VOLUME 76 fl (80-97); MONOCYTES % (AUTO) 3.1 % (3-13); RED BLOOD COUNT 3.34 10^6/uL (3.72-5.28); RED CELL DISTRIBUTION WIDTH 18.9 % (11.5-14.0); SEGMENTED NEUTROPHILS % (AUTO) 78.2 % (42-78); TOTAL CELLS COUNTED % (AUTO) 100 %; WHITE BLOOD COUNT 4.3 10^3/uL (4.0-10.5)
[2020-05-12 12:02] LABS: PLATELET COUNT 54 10^3/uL (150-450)
--- NOTE | 2020-05-12 14:23 | PDOC PROGRESS REPORT ---
Subjective Date:: 05/12/20 Subjective:: Patient states her abdominal pain feels better today though still very much pres ent. She would like to try something to eat today. Still nauseous every now and then. Reason For Visit: PANCREATITIS Physical Exam Vital Signs: Temp Pulse Resp BP Pulse Ox 99.5 F 91 18 132/77 H 100 05/12/20 10:52 05/12/20 10:52 05/12/20 10:52 05/12/20 10:52 05/12/20 10:52 Intake & Output 05/11/20 05/12/20 05/13/20 06:59 06:59 06:59 Intake Total 1000 2700 Output Total 800 350 Balance 1000 1900 -350 Weight 53.07 kg 53.7 kg General appearance: PRESENT: no acute distress, cooperative Neck exam: ABSENT: JVD Respiratory exam: PRESENT: symmetrical, unlabored. ABSENT: tachypnea, wheezes Cardiovascular exam: PRESENT: RRR, +S1, +S2. ABSENT: tachycardia GI/Abdominal exam: PRESENT: soft, tenderness - Light to moderate palpation. ABSENT: rebound, rigid Neurological exam: PRESENT: alert, awake, oriented to person, oriented to place, oriented to time, oriented to situation Psychiatric exam: ABSENT: agitated, anxious Results Laboratory Results: 05/12/20 10:27 05/12/20 07:41 05/11/20 05/11/20 05/11/20 02:56 02:56 06:25 WBC RBC Hgb Hct MCV MCH MCHC RDW Plt Count Seg Neutrophils % Sodium Potassium Chloride Carbon Dioxide Anion Gap BUN Creatinine Est GFR ( Amer) Glucose Calcium Phosphorus Magnesium Iron 215.9 H TIBC 507 H % Saturation 43 Ferritin 8.40 Total Bilirubin AST Alkaline Phosphatase Total Protein Albumin Triglycerides 200 H Vitamin B12 < 159.0 L Folate 6.46 TSH Blood Type A POSITIVE Antibody Screen NEGATIVE 05/12/20 05/12/20 05/12/20 07:41 07:41 07:41 WBC Cancelled RBC Cancelled Hgb Cancelled Hct Cancelled MCV Cancelled MCH Cancelled MCHC Cancelled RDW Cancelled Plt Count Cancelled Seg Neutrophils % Cancelled Sodium 135.4 L Potassium 3.2 L Chloride 102 Carbon Dioxide 28 Anion Gap 5 BUN 11 Creatinine 0.42 L Est GFR ( Amer) > 60 Glucose 94 Calcium 8.4 Phosphorus 2.4 L Magnesium 1.6 Iron TIBC % Saturation Ferritin Total Bilirubin 1.8 H AST 57 H Alkaline Phosphatase 95 Total Protein 6.1 L Albumin 3.1 L Triglycerides Vitamin B12 Folate TSH 2.11 Blood Type Antibody Screen 05/12/20 10:27 WBC 4.3 RBC 3.34 L Hgb 8.2 L Hct 25.4 L MCV 76 L MCH 24.7 L MCHC 32.5 RDW 18.9 H Plt Count 54 L Seg Neutrophils % 78.2 H Sodium Potassium Chloride Carbon Dioxide Anion Gap BUN Creatinine Est GFR ( Amer) Glucose Calcium Phosphorus Magnesium Iron TIBC % Saturation Ferritin Total Bilirubin AST Alkaline Phosphatase Total Protein Albumin Triglycerides Vitamin B12 Folate TSH Blood Type Antibody Screen Impressions: Abdomen/Pelvis CT 05/11/20 04:44 IMPRESSION: 1. Findings most consistent with severe changes of acute pancreatitis with extensive stranding and fluid in the abdomen extending down into the pelvis. This is likely secondarily inflaming loops of bowel in the abdomen even into the right lower quadrant rather than a primary bowel abnormality. Please correlate with patient's amylase and lipase values. 2. No other acute abnormality. Abdomen MRI 05/11/20 07:58 IMPRESSION: 1. Small liver nodules suspicious for metastatic disease. These are too small for CT-guided biopsy. Trace of ascites. 2. Acute pancreatitis. Assessment and Plan - Diagnosis (1) Acute pancreatitis Qualifiers: Pancreatitis type: unspecified pancreatitis type Acute pancreatitis complication: no infection or necrosis Qualified Code(s): K85.90 - Acute pancreatitis without necrosis or infection, unspecified Is this a current diagnosis for this admission?: Yes Plan: Abdominal pain typical, elevated lipase and CT findings consistent with pancreat itis. Aggressive IV fluid hydration, morphine IV as needed Monitor I's and O's No evidence of biliary tract obstruction via labs and imaging. No pancreatic mass noted on MRI. She does not drink excessively but still complete alcohol cessation encouraged Start on full liquid diet. Antiemetics as needed. Continue to monitor metabolic panel renal function. 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 Oncology at [facility] has noted that this is stable in size as compared to 2018. She is meant to be receiving routine surveillance but she states she has not followed up in 2 years due to insurance issues at the time. Outpatient oncology follow-up (3) Acute on chronic anemia Is this a current diagnosis for this admission?: Yes Plan: Hemoglobin was 6.7 on admission. Secondary to B12 and iron deficiency. Interestingly her iron saturation is quite high but her ferritin level is quite low. Status post 2 units of PRBCs. Monitor H&H. Outpatient follow-up with hematology (4) B12 deficiency Is this a current diagnosis for this admission?: Yes Plan: Secondary to gastrectomy. Continue IM cyanocobalamin. (5) Thrombocytopenia Is this a current diagnosis for this admission?: Yes Plan: Platelet count dropped by more than half. She is not on any heparin or Lovenox for prophylaxis. We will repeat counts - Time Time Spent with patient: 15-24 minutes Anticipated Discharge Disposition: Home, Self Care Anticipated Discharge Timeframe: within 72 hours
[2020-05-12] MEDS ORDERED: POTASSIUM CHLORIDE 10 MEQ TABLET.ER PO ONE (14:45)
[2020-05-13] MEDS: MORPHINE SULFATE 10 MG/ML INJ IV PRN ×5 (04:19→22:19)
[2020-05-13] MEDS: PROMETHAZINE HCL INJ 25 MG/1 ML VIAL IV PRN ×4 (04:20→19:02)
[2020-05-13 05:42] LABS: ABSOLUTE EOSINOPHILS # (AUTO) 0.1 10^3/uL (0.0-0.6); ABSOLUTE LYMPHOCYTES (AUTO) 1.2 10^3/uL (0.5-4.7); ABSOLUTE MONOCYTES (AUTO) 0.2 10^3/uL (0.1-1.4); ABSOLUTE NEUT (AUTO) 2.5 10^3/uL (1.7-8.2); BASOPHILS % (AUTO) 0.2 % (0-2); EOSINOPHILS % (AUTO) 2.5 % (0-6); HEMATOCRIT 22.5 % (36.0-47.0); LYMPHOCYTES % (AUTO) 30.7 % (13-45); MEAN CORPUSCULAR HEMOGLOBIN 24.9 pg (27.0-33.4); MEAN CORPUSCULAR HGB CONC 32.6 g/dL (32.0-36.0); MEAN CORPUSCULAR VOLUME 77 fl (80-97); MONOCYTES % (AUTO) 3.9 % (3-13); RED BLOOD COUNT 2.94 10^6/uL (3.72-5.28); RED CELL DISTRIBUTION WIDTH 19.1 % (11.5-14.0); SEGMENTED NEUTROPHILS % (AUTO) 62.7 % (42-78); TOTAL CELLS COUNTED % (AUTO) 100 %; WHITE BLOOD COUNT 3.9 10^3/uL (4.0-10.5)
[2020-05-13 06:07] LABS: ALKALINE PHOSPHATASE 125 U/L (38-126); ANION GAP 6 (5-19); ASPARTATE AMINO TRANSFERASE 36 U/L (14-36); BILIRUBIN,DIRECT 0.2 mg/dL (0.0-0.4); BILIRUBIN,TOTAL 0.8 mg/dL (0.2-1.3); BLOOD UREA NITROGEN 7 mg/dL (7-20); CALCIUM 8.6 mg/dL (8.4-10.2); CARBON DIOXIDE 26 mmol/L (22-30); CHLORIDE 102 mmol/L (98-107); GLUCOSE 79 mg/dL (75-110); POTASSIUM 3.6 mmol/L (3.6-5.0); TOTAL PROTEIN 5.7 g/dL (6.3-8.2)
[2020-05-13 06:13] LABS: PLATELET COUNT 53 10^3/uL (150-450)
[2020-05-13 06:14] LABS: HEMOGLOBIN 7.3 g/dL (12.0-15.5)
--- NOTE | 2020-05-13 08:35 | PDOC PROGRESS REPORT ---
Subjective Date:: 05/13/20 Subjective:: Patient states she is still in pain. She is trying to eat some breakfast (Full liquids). She states that her IV had to be restarted last night and she had to be stuck multiple times for this. Nurses confirm that IV access has been a concern. Reason For Visit: PANCREATITIS Physical Exam Vital Signs: Temp Pulse Resp BP Pulse Ox 97.9 F 88 17 111/57 L 98 05/13/20 00:10 05/13/20 00:10 05/13/20 00:10 05/13/20 00:10 05/13/20 00:10 Intake & Output 05/12/20 05/13/20 05/14/20 06:59 06:59 06:59 Intake Total 2700 1420 Output Total 800 1350 Balance 1900 70 Weight 53.7 kg 53.2 kg General appearance: PRESENT: no acute distress, thin Head exam: PRESENT: normocephalic Respiratory exam: PRESENT: unlabored Neurological exam: PRESENT: alert, awake, oriented to person, oriented to place, oriented to time, oriented to situation Psychiatric exam: PRESENT: appropriate affect Skin exam: PRESENT: dry, pallor Results Laboratory Results: 05/13/20 04:52 05/13/20 04:52 05/12/20 05/12/20 05/12/20 07:41 07:41 10:27 WBC Cancelled 4.3 RBC Cancelled 3.34 L Hgb Cancelled 8.2 L Hct Cancelled 25.4 L MCV Cancelled 76 L MCH Cancelled 24.7 L MCHC Cancelled 32.5 RDW Cancelled 18.9 H Plt Count Cancelled 54 L Seg Neutrophils % Cancelled 78.2 H Sodium Potassium Chloride Carbon Dioxide Anion Gap BUN Creatinine Est GFR ( Amer) Glucose Calcium Magnesium Total Bilirubin AST Alkaline Phosphatase Total Protein Albumin TSH 2.11 05/13/20 05/13/20 04:52 04:52 WBC 3.9 L RBC 2.94 L Hgb 7.3 L Hct 22.5 L MCV 77 L MCH 24.9 L MCHC 32.6 RDW 19.1 H Plt Count 53 L Seg Neutrophils % 62.7 Sodium 134.4 L Potassium 3.6 Chloride 102 Carbon Dioxide 26 Anion Gap 6 BUN 7 Creatinine 0.44 L Est GFR ( Amer) > 60 Glucose 79 Calcium 8.6 Magnesium 1.7 Total Bilirubin 0.8 AST 36 Alkaline Phosphatase 125 Total Protein 5.7 L Albumin 3.0 L TSH Impressions: Abdomen/Pelvis CT 05/11/20 04:44 IMPRESSION: 1. Findings most consistent with severe changes of acute pancreatitis with extensive stranding and fluid in the abdomen extending down into the pelvis. This is likely secondarily inflaming loops of bowel in the abdomen even into the right lower quadrant rather than a primary bowel abnormality. Please correlate with patient's amylase and lipase values. 2. No other acute abnormality. Abdomen MRI 05/11/20 07:58 IMPRESSION: 1. Small liver nodules suspicious for metastatic disease. These are too small for CT-guided biopsy. Trace of ascites. 2. Acute pancreatitis. Assessment & Plan - Diagnosis (1) Acute on chronic anemia Is this a current diagnosis for this admission?: Yes Plan: Vit B12 deficiency, receiving IM B12 injections. Also with iron deficiency. We again discussed a trial of a different form of IV iron. She tells me the form she reacted to in the past was ferlicit. We discussed trying Injectafer with a test dose and pre-meds and she agrees. I have spoken with the pharmacy and they will arrange a test dose of 5 mg prior to full dose of 750 mg. If she does well with this product, she will most likely need 3-4 doses over the next few weeks, but these can be given in the office. I will continue to monitor her blood counts. No indication for further transfusion today. (2) Acute pancreatitis Qualifiers: Pancreatitis type: unspecified pancreatitis type Acute pancreatitis complication: no infection or necrosis Qualified Code(s): K85.90 - Acute pancreatitis without necrosis or infection, unspecified Is this a current diagnosis for this admission?: Yes Plan: As per Hospitalist. Consider PICC line for IV access, as she is receiving TPN, pain meds, etc. - Time Time Spent with patient: 15-24 minutes
[2020-05-13 08:48] LABS: INTERNATIONAL RATION (INR) 0.97; PROTHROMBIN TIME 13.1 SEC (11.4-15.4)
[2020-05-13 08:49] LABS: FIBRINOGEN 348 mg/dL (209-497)
[2020-05-13] MEDS ORDERED: ACETAMINOPHEN 325 MG TABLET PO ONE (09:30)
[2020-05-13] MEDS ORDERED: DIPHENHYDRAMINE HCL 25 MG CAPSULE PO ONE (09:30)
[2020-05-13 09:40] LABS: D-DIMER 16.78 ug/mL (0.00-0.50)
[2020-05-13] MEDS ORDERED: DISPOSABLE IV ONE (10:00)
[2020-05-13] MEDS ORDERED: FERRIC CARBOXYMALTOSE IV ONE ×2 (10:00→10:30)
[2020-05-13] MEDS ORDERED: NORMAL SALINE IV ONE (10:30)
[2020-05-13] MEDS: CYANOCOBALAMIN (VITAMIN B-12) INJ 1000 MCG/1 ML VIAL IM SCH (10:48)
[2020-05-13] MEDS: FAMOTIDINE INJ/PF 20 MG/2 ML SDV IV SCH ×2 (10:49→22:19)
--- NOTE | 2020-05-13 13:20 | PDOC PROGRESS REPORT ---
Subjective Date:: 05/13/20 Subjective:: Patient still having some abdominal pain especially when eating. She does state that it is a little bit better than yesterday and quite a bit better than the previous day as well. She is not having any vomiting but occasionally still getting nauseous. She has been able to keep down her food. She tries to time her pain medication before her meals to allow her to tolerate her meal better. IV access has been an issue she has missed off a few times last night. We will attempt to get a peripheral IV with ultrasound guidance but if not possible then we will have to do a central line Reason For Visit: PANCREATITIS Physical Exam Vital Signs: Temp Pulse Resp BP Pulse Ox 98.1 F 89 16 119/60 100 05/13/20 07:22 05/13/20 07:22 05/13/20 07:22 05/13/20 07:22 05/13/20 07:22 Intake & Output 05/12/20 05/13/20 05/14/20 06:59 06:59 06:59 Intake Total 2700 2420 Output Total 800 1350 Balance 1900 1070 Weight 53.7 kg 53.2 kg General appearance: PRESENT: no acute distress, cooperative Neck exam: ABSENT: JVD Respiratory exam: PRESENT: clear to auscultation christina, unlabored. ABSENT: tachypnea, wheezes Cardiovascular exam: PRESENT: RRR, +S1, +S2. ABSENT: tachycardia GI/Abdominal exam: PRESENT: soft, tenderness - Diffusely. ABSENT: distended, firm, guarding, hernia, rebound, rigid Extremities exam: ABSENT: pedal edema Neurological exam: PRESENT: alert, awake, oriented to person, oriented to place, oriented to time, oriented to situation Results Laboratory Results: 05/13/20 04:52 05/13/20 04:52 05/13/20 05/13/20 04:52 04:52 WBC 3.9 L RBC 2.94 L Hgb 7.3 L Hct 22.5 L MCV 77 L MCH 24.9 L MCHC 32.6 RDW 19.1 H Plt Count 53 L Seg Neutrophils % 62.7 Sodium 134.4 L Potassium 3.6 Chloride 102 Carbon Dioxide 26 Anion Gap 6 BUN 7 Creatinine 0.44 L Est GFR ( Amer) > 60 Glucose 79 Calcium 8.6 Magnesium 1.7 Total Bilirubin 0.8 AST 36 Alkaline Phosphatase 125 Total Protein 5.7 L Albumin 3.0 L Impressions: Abdomen/Pelvis CT 05/11/20 04:44 IMPRESSION: 1. Findings most consistent with severe changes of acute pancreatitis with extensive stranding and fluid in the abdomen extending down into the pelvis. This is likely secondarily inflaming loops of bowel in the abdomen even into the right lower quadrant rather than a primary bowel abnormality. Please correlate with patient's amylase and lipase values. 2. No other acute abnormality. Abdomen MRI 05/11/20 07:58 IMPRESSION: 1. Small liver nodules suspicious for metastatic disease. These are too small for CT-guided biopsy. Trace of ascites. 2. Acute pancreatitis. Assessment and Plan - Diagnosis (1) Acute pancreatitis Qualifiers: Pancreatitis type: unspecified pancreatitis type Acute pancreatitis complication: no infection or necrosis Qualified Code(s): K85.90 - Acute pancreatitis without necrosis or infection, unspecified Is this a current diagnosis for this admission?: Yes Plan: Abdominal pain typical, elevated lipase and CT findings consistent with pancreatitis. IV fluid hydration, morphine IV as needed may need central line if US guided pIV fails a Monitor I's and O's No evidence of biliary tract obstruction via labs and imaging. No pancreatic mass noted on MRI. She does not drink excessively but still complete alcohol cessation encouraged Keep on full liquid diet. Antiemetics as needed. Continue to monitor metabolic panel renal function. 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 Oncology at [facility] has noted that this is stable in size as compared to 2018. She is meant to be receiving routine surveillance but she states she has not followed up in 2 years due to insurance issues at the time. Outpatient oncology follow-up (3) Acute on chronic anemia Is this a current diagnosis for this admission?: Yes Plan: Hemoglobin was 6.7 on admission. Secondary to B12 and iron deficiency. Status post 2 units of PRBCs. Monitor H&H. Outpatient follow-up with hematology (4) B12 deficiency Is this a current diagnosis for this admission?: Yes Plan: Secondary to gastrectomy. Continue IM cyanocobalamin. (5) Iron (Fe) deficiency anemia Qualifiers: Iron deficiency anemia type: unspecified iron deficiency Qualified Code(s): D50.9 - Iron deficiency anemia, unspecified Is this a current diagnosis for this admission?: Yes Plan: trial of iv iron while inpatient since she reports allergy in the past. (6) Thrombocytopenia Is this a current diagnosis for this admission?: Yes - Time Time Spent with patient: 15-24 minutes Anticipated Discharge Disposition: Home, Self Care Anticipated Discharge Timeframe: within 48 hours
[2020-05-13] MEDS: RINGERS SOLUTION,LACTATED 1,000 ML IV PRN (17:50)
[2020-05-14] MEDS: PROMETHAZINE HCL INJ 25 MG/1 ML VIAL IV PRN ×5 (02:01→22:47)
[2020-05-14] MEDS: MORPHINE SULFATE 10 MG/ML INJ IV PRN ×5 (02:26→22:47)
[2020-05-14 06:59] LABS: ALBUMIN 3.3 g/dL (3.5-5.0); ALKALINE PHOSPHATASE 95 U/L (38-126); ANION GAP 5 (5-19); ASPARTATE AMINO TRANSFERASE 35 U/L (14-36); BILIRUBIN,DIRECT 0.2 mg/dL (0.0-0.4); BILIRUBIN,TOTAL 0.7 mg/dL (0.2-1.3); BLOOD UREA NITROGEN 4 mg/dL (7-20); CALCIUM 8.8 mg/dL (8.4-10.2); CARBON DIOXIDE 28 mmol/L (22-30); CHLORIDE 104 mmol/L (98-107); GLUCOSE 77 mg/dL (75-110); POTASSIUM 4.2 mmol/L (3.6-5.0); TOTAL PROTEIN 6.3 g/dL (6.3-8.2)
[2020-05-14 07:08] LABS: ABSOLUTE EOSINOPHILS # (AUTO) 0.2 10^3/uL (0.0-0.6); ABSOLUTE MONOCYTES (AUTO) 0.2 10^3/uL (0.1-1.4); ABSOLUTE NEUT (AUTO) 1.3 10^3/uL (1.7-8.2); BASOPHILS % (AUTO) 0.4 % (0-2); EOSINOPHILS % (AUTO) 8.2 % (0-6); HEMATOCRIT 24.5 % (36.0-47.0); LYMPHOCYTES % (AUTO) 36.4 % (13-45); MEAN CORPUSCULAR HEMOGLOBIN 24.6 pg (27.0-33.4); MEAN CORPUSCULAR HGB CONC 32.1 g/dL (32.0-36.0); MEAN CORPUSCULAR VOLUME 77 fl (80-97); MONOCYTES % (AUTO) 8.7 % (3-13); RED BLOOD COUNT 3.19 10^6/uL (3.72-5.28); RED CELL DISTRIBUTION WIDTH 19.2 % (11.5-14.0); SEGMENTED NEUTROPHILS % (AUTO) 46.3 % (42-78); TOTAL CELLS COUNTED % (AUTO) 100 %
[2020-05-14 07:49] LABS: PLATELET COUNT 61 10^3/uL (150-450); WHITE BLOOD COUNT 2.8 10^3/uL (4.0-10.5)
[2020-05-14 07:56] LABS: HEMOGLOBIN 7.8 g/dL (12.0-15.5)
[2020-05-14] MEDS: RINGERS SOLUTION,LACTATED 1,000 ML IV PRN ×2 (08:24→21:23)
[2020-05-14] MEDS: CYANOCOBALAMIN (VITAMIN B-12) INJ 1000 MCG/1 ML VIAL IM SCH (10:24)
[2020-05-14] MEDS: FAMOTIDINE INJ/PF 20 MG/2 ML SDV IV SCH ×2 (10:25→21:23)
--- NOTE | 2020-05-14 14:10 | PDOC PROGRESS REPORT ---
Subjective Date:: 05/14/20 Subjective:: Pain is getting better. Still present however especially when she eats. Still has some dry retching but now much less frequent. She has been able to tolerate her full liquid diet and would like her diet to be advanced. Reason For Visit: PANCREATITIS Physical Exam Vital Signs: Temp Pulse Resp BP Pulse Ox 98.4 F 81 18 136/80 H 100 05/14/20 11:00 05/14/20 11:00 05/14/20 11:00 05/14/20 11:00 05/14/20 11:00 Intake & Output 05/13/20 05/14/20 05/15/20 06:59 06:59 06:59 Intake Total 2420 2442 280 Output Total 1350 3800 Balance 1070 -1358 280 Weight 53.2 kg 54.2 kg General appearance: PRESENT: no acute distress, cooperative Neck exam: ABSENT: JVD Respiratory exam: PRESENT: symmetrical, unlabored. ABSENT: accessory muscle use, retraction, tachypnea Cardiovascular exam: PRESENT: RRR. ABSENT: bradycardia, irregular rhythm, tachycardia GI/Abdominal exam: PRESENT: soft, tenderness. ABSENT: distended, firm, rebound, rigid Musculoskeletal exam: PRESENT: ambulatory Neurological exam: PRESENT: alert, awake, oriented to person, oriented to place, oriented to time, oriented to situation Psychiatric exam: ABSENT: agitated, anxious Results Laboratory Results: 05/14/20 05:54 05/14/20 05:54 05/14/20 05/14/20 05:54 05:54 WBC 2.8 L D RBC 3.19 L Hgb 7.8 L Hct 24.5 L MCV 77 L MCH 24.6 L MCHC 32.1 RDW 19.2 H Plt Count 61 L Seg Neutrophils % 46.3 Sodium 136.7 L Potassium 4.2 Chloride 104 Carbon Dioxide 28 Anion Gap 5 BUN 4 L Creatinine 0.41 L Est GFR ( Amer) > 60 Glucose 77 Calcium 8.8 Magnesium 1.8 Total Bilirubin 0.7 AST 35 Alkaline Phosphatase 95 Total Protein 6.3 Albumin 3.3 L Impressions: Abdomen/Pelvis CT 05/11/20 04:44 IMPRESSION: 1. Findings most consistent with severe changes of acute pancreatitis with extensive stranding and fluid in the abdomen extending down into the pelvis. This is likely secondarily inflaming loops of bowel in the abdomen even into the right lower quadrant rather than a primary bowel abnormality. Please correlate with patient's amylase and lipase values. 2. No other acute abnormality. Abdomen MRI 05/11/20 07:58 IMPRESSION: 1. Small liver nodules suspicious for metastatic disease. These are too small for CT-guided biopsy. Trace of ascites. 2. Acute pancreatitis. Assessment and Plan - Diagnosis (1) Acute pancreatitis Qualifiers: Pancreatitis type: unspecified pancreatitis type Acute pancreatitis complication: no infection or necrosis Qualified Code(s): K85.90 - Acute pancreatitis without necrosis or infection, unspecified Is this a current diagnosis for this admission?: Yes Plan: Abdominal pain typical, elevated lipase and CT findings consistent with pancreatitis. Monitor I's and O's No evidence of biliary tract obstruction via labs and imaging. No pancreatic mass noted on MRI. She does not drink excessively but still complete alcohol cessation encouraged Advance to mechanical soft diet. Continue IV hydration and IV morphine. Hopefully by tomorrow we can de-escalate to p.o. medications. Antiemetics as needed. (2) Metastasis to liver Is this a current diagnosis for this admission?: Yes (3) Acute on chronic anemia Is this a current diagnosis for this admission?: Yes Plan: Hemoglobin was 6.7 on admission. Secondary to B12 and iron deficiency. Status post 2 units of PRBCs. Monitor H&H. Outpatient follow-up with hematology (4) B12 deficiency Is this a current diagnosis for this admission?: Yes Plan: Secondary to gastrectomy. Continue IM cyanocobalamin. (5) Iron (Fe) deficiency anemia Qualifiers: Iron deficiency anemia type: unspecified iron deficiency Qualified Code(s): D50.9 - Iron deficiency anemia, unspecified Is this a current diagnosis for this admission?: Yes Plan: Hematology recommending trial of iv iron while inpatient since she reports allergy in the past. She will be premedicated with Benadryl first day and given a small test dose of Injectafer before receiving the larger dose. We will keep an EpiPen on standby. (6) Thrombocytopenia Is this a current diagnosis for this admission?: Yes - Time Time Spent with patient: 15-24 minutes Anticipated Discharge Disposition: Home, Self Care Anticipated Discharge Timeframe: within 36 hours
[2020-05-14] MEDS ORDERED: DIPHENHYDRAMINE HCL 25 MG CAPSULE PO PRN (15:25)
[2020-05-14] MEDS ORDERED: EPINEPHRINE INJ/PF 1 MG/1 ML AMPULE IM PRN (15:25)
[2020-05-14] MEDS ORDERED: ACETAMINOPHEN 325 MG TABLET PO PRN (15:26)
[2020-05-14] MEDS ORDERED: FERRIC CARBOXYMALTOSE IV PRN ×2 (16:00)
[2020-05-14] MEDS ORDERED: NORMAL SALINE IV PRN (16:00)
[2020-05-14] MEDS ORDERED: DISPOSABLE IV PRN (16:00)
[2020-05-15] MEDS: MORPHINE SULFATE 10 MG/ML INJ IV PRN ×5 (03:06→22:07)
[2020-05-15] MEDS: PROMETHAZINE HCL INJ 25 MG/1 ML VIAL IV PRN ×4 (03:06→19:40)
[2020-05-15] MEDS: CYANOCOBALAMIN (VITAMIN B-12) INJ 1000 MCG/1 ML VIAL IM SCH (09:24)
[2020-05-15] MEDS: FAMOTIDINE INJ/PF 20 MG/2 ML SDV IV SCH ×2 (09:30→21:02)
[2020-05-15] MEDS: RINGERS SOLUTION,LACTATED 1,000 ML IV PRN ×2 (09:31→21:02)
[2020-05-15] MEDS ORDERED: TRAMADOL HCL 50 MG TABLET PO PRN (17:41)
--- NOTE | 2020-05-15 17:45 | PDOC PROGRESS REPORT ---
Subjective Date:: 05/15/20 Reason For Visit: PANCREATITIS Physical Exam Vital Signs: Temp Pulse Resp BP Pulse Ox 98.5 F 79 17 130/90 H 98 05/15/20 11:45 05/15/20 11:45 05/15/20 11:45 05/15/20 11:45 05/15/20 11:45 Intake & Output 05/14/20 05/15/20 05/16/20 06:59 06:59 06:59 Intake Total 2442 3064.5 476 Output Total 3800 1000 Balance -1358 2064.5 476 Weight 54.2 kg 64.9 kg General appearance: PRESENT: no acute distress, cooperative Neck exam: ABSENT: JVD Respiratory exam: PRESENT: clear to auscultation christina, unlabored. ABSENT: tac hypnea, wheezes Cardiovascular exam: PRESENT: RRR, +S1, +S2. ABSENT: tachycardia GI/Abdominal exam: PRESENT: soft, tenderness - Or light to moderate palpation. ABSENT: distended, firm, rebound, rigid Neurological exam: PRESENT: alert, awake, oriented to person, oriented to place, oriented to time Results Laboratory Results: 05/14/20 05:54 05/14/20 05:54 Impressions: Abdomen/Pelvis CT 05/11/20 04:44 IMPRESSION: 1. Findings most consistent with severe changes of acute pancreatitis with extensive stranding and fluid in the abdomen extending down into the pelvis. This is likely secondarily inflaming loops of bowel in the abdomen even into the right lower quadrant rather than a primary bowel abnormality. Please correlate with patient's amylase and lipase values. 2. No other acute abnormality. Abdomen MRI 05/11/20 07:58 IMPRESSION: 1. Small liver nodules suspicious for metastatic disease. These are too small for CT-guided biopsy. Trace of ascites. 2. Acute pancreatitis. Assessment and Plan - Diagnosis (1) Acute pancreatitis Qualifiers: Pancreatitis type: unspecified pancreatitis type Acute pancreatitis complication: no infection or necrosis Qualified Code(s): K85.90 - Acute pancreatitis without necrosis or infection, unspecified Is this a current diagnosis for this admission?: Yes (2) Metastasis to liver Is this a current diagnosis for this admission?: Yes (3) Acute on chronic anemia Is this a current diagnosis for this admission?: Yes (4) B12 deficiency Is this a current diagnosis for this admission?: Yes (5) Iron (Fe) deficiency anemia Qualifiers: Iron deficiency anemia type: unspecified iron deficiency Qualified Code(s): D50.9 - Iron deficiency anemia, unspecified Is this a current diagnosis for this admission?: Yes (6) Thrombocytopenia Is this a current diagnosis for this admission?: Yes - Plan Summary Summary: I spoke to patient and patient's mother was at bedside with patient's father on speaker phone. We discussed the plan of care. Patient had a little GI upset with the iron infusion yesterday reports no severe reactions. She is okay with continuing iron infusions as outpatient and states that she is looking for a local casket coverer so I have referred her to continue to see Dr. Page. In terms of her pancreatitis, she is still quite tender on palpation. She states that she slowly feels as though getting better but not quite there yet. We will continue IV fluids. She remains on the low cholesterol low-fat GI soft diet which she has been tolerating though not able to eats too much. I would like to get her off fluids tomorrow and start her on oral pain medications. We will check labs in the morning. - Time Time Spent with patient: 15-24 minutes Anticipated Discharge Disposition: Home, Self Care Anticipated Discharge Timeframe: within 48 hours
--- NOTE | 2020-05-15 18:07 | PDOC PROGRESS REPORT ---
Subjective Date:: 05/15/20 Subjective:: Patient received the Injectafer with no significant reaction. She had some abdo geoff cramping and headache, but was given nausea meds which helped. Today, she again lost her IV access and we discussed PICC line placement. she would like this done if possible, but has panic attacks so will require conscious sedation for this procedure. Reason For Visit: PANCREATITIS Physical Exam Vital Signs: Temp Pulse Resp BP Pulse Ox 98.5 F 79 17 130/90 H 98 05/15/20 11:45 05/15/20 11:45 05/15/20 11:45 05/15/20 11:45 05/15/20 11:45 Intake & Output 05/14/20 05/15/20 05/16/20 06:59 06:59 06:59 Intake Total 2442 3064.5 476 Output Total 3800 1000 Balance -1358 2064.5 476 Weight 54.2 kg 64.9 kg General appearance: PRESENT: thin Head exam: PRESENT: normocephalic Eye exam: PRESENT: EOMI Mouth exam: PRESENT: dry mucosa Respiratory exam: PRESENT: unlabored Musculoskeletal exam: PRESENT: normal inspection Neurological exam: PRESENT: alert, awake Psychiatric exam: PRESENT: appropriate affect Skin exam: PRESENT: pallor Results Laboratory Results: 05/14/20 05:54 05/14/20 05:54 Impressions: Abdomen/Pelvis CT 05/11/20 04:44 IMPRESSION: 1. Findings most consistent with severe changes of acute pancreatitis with extensive stranding and fluid in the abdomen extending down into the pelvis. This is likely secondarily inflaming loops of bowel in the abdomen even into the right lower quadrant rather than a primary bowel abnormality. Please correlate with patient's amylase and lipase values. 2. No other acute abnormality. Abdomen MRI 05/11/20 07:58 IMPRESSION: 1. Small liver nodules suspicious for metastatic disease. These are too small for CT-guided biopsy. Trace of ascites. 2. Acute pancreatitis. Assessment & Plan - Diagnosis (1) Acute on chronic anemia Is this a current diagnosis for this admission?: Yes Plan: She has received IM B12 and IV iron and her blood counts are slowly improving. Would change to weekly IM B12 and weekly Injectafer for 2 more doses. I will follow from a distance, please call me if needed. (2) Acute pancreatitis Qualifiers: Pancreatitis type: unspecified pancreatitis type Acute pancreatitis complication: no infection or necrosis Qualified Code(s): K85.90 - Acute pancreatitis without necrosis or infection, unspecified Is this a current diagnosis for this admission?: Yes Plan: I have requested PICC line placement. - Time Time Spent with patient: Less than 15 minutes
[2020-05-16] MEDS: MORPHINE SULFATE 10 MG/ML INJ IV PRN ×3 (02:10→10:55)
[2020-05-16] MEDS: RINGERS SOLUTION,LACTATED 1,000 ML IV PRN (04:21)
[2020-05-16] MEDS: PROMETHAZINE HCL INJ 25 MG/1 ML VIAL IV PRN ×2 (04:31→09:19)
[2020-05-16 05:06] LABS: HEMATOCRIT 26.6 % (36.0-47.0); HEMOGLOBIN 8.3 g/dL (12.0-15.5); MEAN CORPUSCULAR HEMOGLOBIN 24.8 pg (27.0-33.4); MEAN CORPUSCULAR HGB CONC 31.3 g/dL (32.0-36.0); MEAN CORPUSCULAR VOLUME 79 fl (80-97); RED BLOOD COUNT 3.37 10^6/uL (3.72-5.28); RED CELL DISTRIBUTION WIDTH 19.6 % (11.5-14.0); WHITE BLOOD COUNT 2.7 10^3/uL (4.0-10.5)
[2020-05-16 05:17] LABS: ALKALINE PHOSPHATASE 156 U/L (38-126); ANION GAP 10 (5-19); ASPARTATE AMINO TRANSFERASE 99 U/L (14-36); BILIRUBIN,DIRECT 0.2 mg/dL (0.0-0.4); BILIRUBIN,TOTAL 0.6 mg/dL (0.2-1.3); BLOOD UREA NITROGEN 3 mg/dL (7-20); CALCIUM 9.5 mg/dL (8.4-10.2); CARBON DIOXIDE 26 mmol/L (22-30); CHLORIDE 105 mmol/L (98-107); GLUCOSE 94 mg/dL (75-110); POTASSIUM 3.9 mmol/L (3.6-5.0); TOTAL PROTEIN 7.5 g/dL (6.3-8.2)
[2020-05-16 05:50] LABS: ABSOLUTE LYMPHOCYTES# (MANUAL) 0.9 10^3/uL (0.5-4.7); ABSOLUTE MONOCYTES # (MANUAL) 0.2 10^3/uL (0.1-1.4); BASOPHILS % (MANUAL) 0 % (0-2); EOSINOPHILS % (MANUAL) 9 % (0-6); LYMPHOCYTES % (MANUAL) 34 % (13-45); MONOCYTES % (MANUAL) 8 % (3-13); SEGMENTED NEUTROPHILS % (MAN) 48 % (42-78); TOTAL CELLS COUNTED 100
[2020-05-16 05:51] LABS: ANISOCYTOSIS 2+; HYPOCHROMASIA 1+; PLATELET COMMENT DECREASED
[2020-05-16 05:52] LABS: OVALOCYTES 1+
[2020-05-16 05:53] LABS: TEAR DROP CELLS SLIGHT
[2020-05-16 05:57] LABS: PLATELET COUNT 74 10^3/uL (150-450)
[2020-05-16] MEDS: FAMOTIDINE INJ/PF 20 MG/2 ML SDV IV SCH (09:19)
[2020-05-16] MEDS ORDERED: MIDAZOLAM 2 MG/2 ML INJ ONE (10:22)
[2020-05-16] MEDS ORDERED: PROMETHAZINE HCL 25 MG TABLET PO PRN (11:03)
--- NOTE | 2020-05-16 11:25 | PDOC PROGRESS REPORT ---
Subjective Date:: 05/16/20 Subjective:: Patient is still having some abdominal pain. She was able to tolerate food yest erday. She was quite upset about the cancellation of the PICC line procedure this morning. I explained to her that I I have discontinued her IV fluids and her IV morphine this morning and wanted to try her on p.o. pain medications and oral hydration as her pancreatitis enzymes have shown remarkable improvement so we do not need the PICC line for now and I have discussed with Dr. Root who has confirmed to me that the PICC line was not meant for the outpatient iron infusions but for IV access during this hospitalization. Reason For Visit: PANCREATITIS Physical Exam Vital Signs: Temp Pulse Resp BP Pulse Ox 97.6 F 68 16 121/89 H 97 05/16/20 10:25 05/16/20 10:25 05/16/20 10:25 05/16/20 10:25 05/16/20 10:25 Intake & Output 05/15/20 05/16/20 05/17/20 06:59 06:59 06:59 Intake Total 3064.5 2476 Output Total 1000 Balance 2064.5 2476 Weight 64.9 kg 56.1 kg General appearance: PRESENT: no acute distress, cooperative Neck exam: ABSENT: JVD Respiratory exam: PRESENT: symmetrical, unlabored. ABSENT: tachypnea, wheezes Cardiovascular exam: PRESENT: RRR, +S1, +S2. ABSENT: tachycardia GI/Abdominal exam: PRESENT: soft, tenderness. ABSENT: distended, firm, guarding, rebound, rigid Neurological exam: PRESENT: alert, awake, oriented to person, oriented to place, oriented to time, oriented to situation Results Laboratory Results: 05/16/20 04:19 05/16/20 04:19 05/16/20 05/16/20 04:19 04:19 WBC 2.7 L RBC 3.37 L Hgb 8.3 L Hct 26.6 L MCV 79 L MCH 24.8 L MCHC 31.3 L RDW 19.6 H Plt Count 74 L Seg Neutrophils % Not Reportable Sodium 140.5 Potassium 3.9 Chloride 105 Carbon Dioxide 26 Anion Gap 10 BUN 3 L Creatinine 0.48 L Est GFR ( Amer) > 60 Glucose 94 Calcium 9.5 Magnesium 2.0 Total Bilirubin 0.6 AST 99 H Alkaline Phosphatase 156 H Total Protein 7.5 Albumin 4.0 Lipase 749.0 H Impressions: Abdomen/Pelvis CT 05/11/20 04:44 IMPRESSION: 1. Findings most consistent with severe changes of acute pancreatitis with extensive stranding and fluid in the abdomen extending down into the pelvis. This is likely secondarily inflaming loops of bowel in the abdomen even into the right lower quadrant rather than a primary bowel abnormality. Please correlate with patient's amylase and lipase values. 2. No other acute abnormality. Abdomen MRI 05/11/20 07:58 IMPRESSION: 1. Small liver nodules suspicious for metastatic disease. These are too small for CT-guided biopsy. Trace of ascites. 2. Acute pancreatitis. Assessment and Plan - Diagnosis (1) Acute pancreatitis Qualifiers: Pancreatitis type: unspecified pancreatitis type Acute pancreatitis complication: no infection or necrosis Qualified Code(s): K85.90 - Acute pancr eatitis without necrosis or infection, unspecified Is this a current diagnosis for this admission?: Yes Plan: Abdominal pain typical, elevated lipase and CT findings consistent with pancreatitis. Monitor I's and O's No evidence of biliary tract obstruction via labs and imaging. No pancreatic mass noted on MRI. She does not drink excessively but still complete alcohol cessation encouraged Lipase down to 700s from 7000s Tolerating mechanical soft diet. Discontinue IV fluids and morphine. Encourage oral hydration. Tramadol as needed. Antiemetics. 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 Oncology at [facility] has noted that this is stable in size as compared to 2018. She is meant to be receiving routine surveillance but she states she has not followed up in 2 years due to insurance issues at the time. Outpatient oncology follow-up (3) Acute on chronic anemia Is this a current diagnosis for this admission?: Yes Plan: Hemoglobin was 6.7 on admission. Secondary to B12 and iron deficiency. Status post 2 units of PRBCs. H&H have been steady. Outpatient follow-up with hematology (4) B12 deficiency Is this a current diagnosis for this admission?: Yes Plan: Secondary to gastrectomy. Continue IM cyanocobalamin. (5) Iron (Fe) deficiency anemia Qualifiers: Iron deficiency anemia type: unspecified iron deficiency Qualified Code(s): D50.9 - Iron deficiency anemia, unspecified Is this a current diagnosis for this admission?: Yes Plan: She did okay with Injectafer infusion 2 days ago. Premedicated with Benadryl p.o. Follow-up with hematology as outpatient. (6) Thrombocytopenia Is this a current diagnosis for this admission?: Yes - Time Time Spent with patient: Less than 15 minutes Anticipated Discharge Disposition: Home, Self Care Anticipated Discharge Timeframe: within 24 hours
[2020-05-16] MEDS: CYANOCOBALAMIN (VITAMIN B-12) INJ 1000 MCG/1 ML VIAL IM SCH (13:06)
[2020-05-16] MEDS: TRAMADOL HCL 50 MG TABLET PO PRN ×2 (13:13→19:26)
[2020-05-16] MEDS: FAMOTIDINE 20 MG TABLET PO SCH ×2 (13:14→21:37)
[2020-05-16] MEDS: OXYCODONE HCL IR 5 MG TABLET PO PRN ×2 (14:41→20:55)
[2020-05-17] MEDS: TRAMADOL HCL 50 MG TABLET PO PRN ×4 (01:29→20:28)
[2020-05-17] MEDS: OXYCODONE HCL IR 5 MG TABLET PO PRN ×4 (04:32→22:54)
[2020-05-17] MEDS: FAMOTIDINE 20 MG TABLET PO SCH ×2 (10:35→22:54)
[2020-05-17] MEDS: CYANOCOBALAMIN (VITAMIN B-12) INJ 1000 MCG/1 ML VIAL IM SCH (10:38)
--- NOTE | 2020-05-17 11:55 | PDOC PROGRESS REPORT ---
Subjective Date:: 05/17/20 Subjective:: The patient is resting in bed. She did not tolerate breakfast well. She had several bites of pancakes with syrup and this caused a spike in her abdominal pain. She seems to be tolerating the soy milk as well as most clear liquids. Reason For Visit: PANCREATITIS Physical Exam Vital Signs: Temp Pulse Resp BP Pulse Ox 98.4 F 93 16 134/77 H 100 05/17/20 11:10 05/17/20 11:10 05/17/20 11:10 05/17/20 11:10 05/17/20 11:10 Intake & Output 05/16/20 05/17/20 05/18/20 06:59 06:59 06:59 Intake Total 2476 300 240 Balance 2476 300 240 Weight 56.1 kg 55.8 kg 55.8 kg General appearance: PRESENT: cooperative, mild distress, well-developed Head exam: PRESENT: atraumatic, normocephalic Eye exam: PRESENT: conjunctiva pale. ABSENT: scleral icterus Ear exam: PRESENT: normal external ear exam. ABSENT: bleeding, drainage Mouth exam: PRESENT: dry mucosa, tongue midline Teeth exam: PRESENT: poor dentation Respiratory exam: PRESENT: clear to auscultation christina, symmetrical, unlabored. ABSENT: accessory muscle use, prolonged expiratory phas, rales, rhonchi, tachypnea, wheezes Cardiovascular exam: PRESENT: RRR, +S1, +S2. ABSENT: bradycardia, diastolic mu rmur, irregular rhythm, systolic murmur, tachycardia GI/Abdominal exam: PRESENT: normal bowel sounds, soft, tenderness - Across the upper abdomen. ABSENT: distended Rectal exam: PRESENT: deferred Gentrourinary exam: ABSENT: indwelling catheter Extremities exam: ABSENT: pedal edema Musculoskeletal exam: PRESENT: ambulatory, normal inspection. ABSENT: deformity, dislocation Neurological exam: PRESENT: alert, awake, oriented to person, oriented to place, oriented to time, oriented to situation, CN II-XII grossly intact. ABSENT: altered Psychiatric exam: PRESENT: appropriate affect. ABSENT: agitated, anxious Focused psych exam: ABSENT: delusional, paranoid, restlessness Skin exam: PRESENT: dry, pallor, warm. ABSENT: rash Results Laboratory Results: 05/16/20 04:19 05/16/20 04:19 Impressions: Abdomen/Pelvis CT 05/11/20 04:44 IMPRESSION: 1. Findings most consistent with severe changes of acute pancreatitis with extensive stranding and fluid in the abdomen extending down into the pelvis. This is likely secondarily inflaming loops of bowel in the abdomen even into the right lower quadrant rather than a primary bowel abnormality. Please correlate with patient's amylase and lipase values. 2. No other acute abnormality. Abdomen MRI 05/11/20 07:58 IMPRESSION: 1. Small liver nodules suspicious for metastatic disease. These are too small for CT-guided biopsy. Trace of ascites. 2. Acute pancreatitis. Assessment and Plan - Diagnosis (1) Acute pancreatitis Qualifiers: Pancreatitis type: unspecified pancreatitis type Acute pancreatitis complication: no infection or necrosis Qualified Code(s): K85.90 - Acute pancreatitis without necrosis or infection, unspecified Is this a current diagnosis for this admission?: Yes Plan: Abdominal pain typical, elevated lipase and CT findings consistent with pancreatitis. Monitor I's and O's No evidence of biliary tract obstruction via labs and imaging. No pancreatic mass noted on MRI. She does not drink excessively but still complete alcohol cessation encouraged Lipase down to 700s from 7000s Tolerating mechanical soft diet. Discontinue IV fluids and morphine. Encourage oral hydration. Tramadol as needed. Antiemetics. 05/17/2020 Pancreatitis-episode of pain after breakfast. She thinks it was the high sugar load in the syrup with her pancakes. We are going to try a low lactose mechanical soft diet with ground meat instead of cut meat. The plan is for discharge tomorrow. 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 Oncology at [facility] has noted that this is stable in size as compared to 2018. She is meant to be receiving routine surveillance but she states she has not followed up in 2 years due to insurance issues at the time. Outpatient oncology follow-up 05/17/2020 As above (3) Acute on chronic anemia Is this a current diagnosis for this admission?: Yes Plan: Hemoglobin was 6.7 on admission. Secondary to B12 and iron deficiency. Status post 2 units of PRBCs. H&H have been steady. Outpatient follow-up with hematology 05/17/2020 Hemoglobin was 8.3 yesterday. I will recheck CBC tomorrow. (4) B12 deficiency Is this a current diagnosis for this admission?: Yes Plan: Secondary to gastrectomy. Continue IM cyanocobalamin. 05/17/2020 Continue B12 supplement (5) Iron (Fe) deficiency anemia Qualifiers: Iron deficiency anemia type: other iron deficiency Qualified Code(s): D50.8 - Other iron deficiency anemias Is this a current diagnosis for this admission?: Yes Plan: She did okay with Injectafer infusion 2 days ago. Premedicated with Benadryl p.o. Follow-up with hematology as outpatient. 05/17/2020 Injectafer as above. Patient will be seeing hematology post discharge. (6) Thrombocytopenia Is this a current diagnosis for this admission?: Yes Plan: Platelet count dropped by more than half. She is not on any heparin or Lovenox for prophylaxis. We will repeat counts 05/17/2020 Platelet count was 74 yesterday. Slowly improving. Recheck CBC tomorrow. (7) Neutropenia Qualifiers: Neutropenia type: other Qualified Code(s): D70.8 - Other neutropenia Is this a current diagnosis for this admission?: Yes Plan: 05/17/2020 Likely related to the acute illness. White blood cell count was 2.7 yesterday. It was 2.8 the test before. We will recheck CBC tomorrow. Hopefully she has goldman d her doni in the white blood cell count will improve (8) Transaminitis Is this a current diagnosis for this admission?: Yes Plan: 05/17/2020 Transaminases elevated yesterday. Will recheck tomorrow. Likely related to the acute illness. - Plan Summary Summary: (1) Acute pancreatitis Qualifiers: Pancreatitis type: unspecified pancreatitis type Acute pancreatitis complication: no infection or necrosis Qualified Code(s): K85.90 - Acute pancreatitis without necrosis or infection, unspecified Is this a current diagnosis for this admission?: Yes Plan: Abdominal pain typical, elevated lipase and CT findings consistent with pancreatitis. Monitor I's and O's No evidence of biliary tract obstruction via labs and imaging. No pancreatic mass noted on MRI. She does not drink excessively but still complete alcohol cessation encouraged Lipase down to 700s from 7000s Tolerating mechanical soft diet. Discontinue IV fluids and morphine. Encourage oral hydration. Tramadol as needed. Antiemetics. 05/17/2020 Pancreatitis-episode of pain after breakfast. She thinks it was the high sugar load in the syrup with her pancakes. We are going to try a low lactose mechanical soft diet with ground meat instead of cut meat. The plan is for discharge tomorrow. 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 Oncology at [facility] has noted that this is stable in size as compared to 2018. She is meant to be receiving routine surveillance but she states she has not followed up in 2 years due to insurance issues at the time. Outpatient oncology follow-up 05/17/2020 As above (3) Acute on chronic anemia Is this a current diagnosis for this admission?: Yes Plan: Hemoglobin was 6.7 on admission. Secondary to B12 and iron deficiency. Status post 2 units of PRBCs. H&H have been steady. Outpatient follow-up with hematology 05/17/2020 Hemoglobin was 8.3 yesterday. I will recheck CBC tomorrow. (4) B12 deficiency Is this a current diagnosis for this admission?: Yes Plan: Secondary to gastrectomy. Continue IM cyanocobalamin. 05/17/2020 Continue B12 supplement (5) Iron (Fe) deficiency anemia Qualifiers: Iron deficiency anemia type: other iron deficiency Qualified Code(s): D50.8 - Other iron deficiency anemias Is this a current diagnosis for this admission?: Yes Plan: She did okay with Injectafer infusion 2 days ago. Premedicated with Benadryl p.o. Follow-up with hematology as outpatient. 05/17/2020 Injectafer as above. Patient will be seeing hematology post discharge. (6) Thrombocytopenia Is this a current diagnosis for this admission?: Yes Plan: Platelet count dropped by more than half. She is not on any heparin or Lovenox for prophylaxis. We will repeat counts 05/17/2020 Platelet count was 74 yesterday. Slowly improving. Recheck CBC tomorrow. (7) Neutropenia Qualifiers: Neutropenia type: other Qualified Code(s): D70.8 - Other neutropenia Is this a current diagnosis for this admission?: Yes Plan: 05/17/2020 Likely related to the acute illness. White blood cell count was 2.7 yesterday. It was 2.8 the test before. We will recheck CBC tomorrow. Hopefully she has had her doni in the white blood cell count will improve (8) Transaminitis Is this a current diagnosis for this admission?: Yes Plan: 05/17/2020 Transaminases elevated yesterday. Will recheck tomorrow. Likely related to the acute illness. - Time Time Spent with patient: 15-24 minutes Medications reviewed and adjusted accordingly: Yes Anticipated Discharge Disposition: Home, Self Care Anticipated Discharge Timeframe: within 24 hours
[2020-05-18] MEDS: TRAMADOL HCL 50 MG TABLET PO PRN ×4 (02:28→23:32)
[2020-05-18] MEDS: OXYCODONE HCL IR 5 MG TABLET PO PRN ×3 (05:14→18:18)
[2020-05-18 07:56] LABS: ALBUMIN 4.4 g/dL (3.5-5.0); ALKALINE PHOSPHATASE 152 U/L (38-126); ANION GAP 9 (5-19); ASPARTATE AMINO TRANSFERASE 202 U/L (14-36); BILIRUBIN,DIRECT 0.3 mg/dL (0.0-0.4); BILIRUBIN,TOTAL 0.7 mg/dL (0.2-1.3); BLOOD UREA NITROGEN 6 mg/dL (7-20); CALCIUM 9.6 mg/dL (8.4-10.2); CARBON DIOXIDE 28 mmol/L (22-30); CHLORIDE 102 mmol/L (98-107); GLUCOSE 80 mg/dL (75-110); POTASSIUM 3.9 mmol/L (3.6-5.0); TOTAL PROTEIN 8.2 g/dL (6.3-8.2)
[2020-05-18 09:47] LABS: HEMATOCRIT 25.4 % (36.0-47.0); HEMOGLOBIN 8.1 g/dL (12.0-15.5); MEAN CORPUSCULAR HEMOGLOBIN 25.8 pg (27.0-33.4); MEAN CORPUSCULAR VOLUME 81 fl (80-97); RED BLOOD COUNT 3.15 10^6/uL (3.72-5.28); WHITE BLOOD COUNT 2.8 10^3/uL (4.0-10.5)
[2020-05-18 10:04] LABS: PLATELET COUNT 225 10^3/uL (150-450)
[2020-05-18] MEDS: FAMOTIDINE 20 MG TABLET PO SCH ×2 (11:26→22:00)
[2020-05-18] MEDS: CYANOCOBALAMIN (VITAMIN B-12) INJ 1000 MCG/1 ML VIAL IM SCH (11:27)
--- NOTE | 2020-05-18 13:20 | PDOC PROGRESS REPORT ---
Subjective Date:: 05/18/20 Subjective:: The patient is actually feeling worse. She is actually requesting to go back to clear liquid diet. Her transaminases were mildly elevated yesterday and are more elevated today. Not sure of the etiology. Because she has very limited venous access I am going to order a PICC line as we need to further investigate the transaminases, give IV fluids and obtain serial lab tests. Reason For Visit: PANCREATITIS Physical Exam Vital Signs: Temp Pulse Resp BP Pulse Ox 98.1 F 77 16 115/55 L 100 05/18/20 11:21 05/18/20 11:21 05/18/20 11:21 05/18/20 11:21 05/18/20 11:21 Intake & Output 05/17/20 05/18/20 05/19/20 06:59 06:59 06:59 Intake Total 300 540 240 Balance 300 540 240 Weight 55.8 kg 55.8 kg General appearance: PRESENT: cooperative, mild distress, thin Head exam: PRESENT: atraumatic, normocephalic Eye exam: PRESENT: conjunctiva pale, EOMI. ABSENT: scleral icterus Mouth exam: PRESENT: dry mucosa, tongue midline Teeth exam: PRESENT: poor dentation Neck exam: ABSENT: carotid bruit, JVD, lymphadenopathy Respiratory exam: PRESENT: clear to auscultation christina, symmetrical, unlabored. ABSENT: accessory muscle use, rales, rhonchi, tachypnea, wheezes Cardiovascular exam: PRESENT: RRR, +S1, +S2. ABSENT: bradycardia, diastolic murmur, irregular rhythm, systolic murmur, tachycardia GI/Abdominal exam: PRESENT: distended - Slightly distended across the lower abdomen, normal bowel sounds, soft, tenderness Rectal exam: PRESENT: deferred Gentrourinary exam: ABSENT: indwelling catheter Extremities exam: ABSENT: pedal edema Musculoskeletal exam: PRESENT: ambulatory Neurological exam: PRESENT: alert, awake, oriented to person, oriented to place, oriented to time, oriented to situation, CN II-XII grossly intact. ABSENT: altered, motor sensory deficit Psychiatric exam: ABSENT: anxious, homicidal ideation, suicidal ideation Focused psych exam: PRESENT: delusional, paranoid, restlessness Skin exam: PRESENT: dry, pallor, warm. ABSENT: rash Results Laboratory Results: 05/18/20 09:33 05/18/20 06:49 05/18/20 05/18/20 05/18/20 06:49 06:49 09:33 WBC Cancelled 2.8 L RBC Cancelled 3.15 L Hgb Cancelled 8.1 L Hct Cancelled 25.4 L MCV Cancelled 81 MCH Cancelled 25.8 L MCHC Cancelled 32.0 RDW Cancelled 22.0 H Plt Count Cancelled 225 D Sodium 138.7 Potassium 3.9 Chloride 102 Carbon Dioxide 28 Anion Gap 9 BUN 6 L Creatinine 0.55 Est GFR ( Amer) > 60 Glucose 80 Calcium 9.6 Magnesium 2.2 Total Bilirubin 0.7 AST 202 H Alkaline Phosphatase 152 H Total Protein 8.2 Albumin 4.4 Impressions: Abdomen/Pelvis CT 05/11/20 04:44 IMPRESSION: 1. Findings most consistent with severe changes of acute pancreatitis with extensive stranding and fluid in the abdomen extending down into the pelvis. This is likely secondarily inflaming loops of bowel in the abdomen even into the right lower quadrant rather than a primary bowel abnormality. Please correlate with patient's amylase and lipase values. 2. No other acute abnormality. Abdomen MRI 05/11/20 07:58 IMPRESSION: 1. Small liver nodules suspicious for metastatic disease. These are too small for CT-guided biopsy. Trace of ascites. 2. Acute pancreatitis. Assessment and Plan - Diagnosis (1) Acute pancreatitis Qualifiers: Pancreatitis type: unspecified pancreatitis type Acute pancreatitis complication: no infection or necrosis Qualified Code(s): K85.90 - Acute pancreatitis without necrosis or infection, unspecified Is this a current diagnosis for this admission?: Yes (2) Metastasis to liver Is this a current diagnosis for this admission?: Yes (3) Acute on chronic anemia Is this a current diagnosis for this admission?: Yes (4) B12 deficiency Is this a current diagnosis for this admission?: Yes (5) Iron (Fe) deficiency anemia Qualifiers: Iron deficiency anemia type: other iron deficiency Qualified Code(s): D50.8 - Other iron deficiency anemias Is this a current diagnosis for this admission?: Yes (6) Thrombocytopenia Is this a current diagnosis for this admission?: Yes (7) Neutropenia Qualifiers: Neutropenia type: other Qualified Code(s): D70.8 - Other neutropenia Is this a current diagnosis for this admission?: Yes (8) Transaminitis Is this a current diagnosis for this admission?: Yes - Plan Summary Summary: (1) Acute pancreatitis Qualifiers: Pancreatitis type: unspecified pancreatitis type Acute pancreatitis complication: no infection or necrosis Qualified Code(s): K85.90 - Acute pa ncreatitis without necrosis or infection, unspecified Is this a current diagnosis for this admission?: Yes Plan: Abdominal pain typical, elevated lipase and CT findings consistent with pancreatitis. Monitor I's and O's No evidence of biliary tract obstruction via labs and imaging. No pancreatic mass noted on MRI. She does not drink excessively but still complete alcohol cessation encouraged Lipase down to 700s from 7000s Tolerating mechanical soft diet. Discontinue IV fluids and morphine. Encourage oral hydration. Tramadol as needed. Antiemetics. 05/17/2020 Pancreatitis-episode of pain after breakfast. She thinks it was the high sugar load in the syrup with her pancakes. We are going to try a low lactose mechanical soft diet with ground meat instead of cut meat. The plan is for discharge tomorrow. 05/18/2020 Abdominal pain is worse today. She actually requested going back to clear liquids. Her transaminases are higher today. Pancreatitis appears to be resolved however. Continue to adjust diet based on clinical status. 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 Oncology at [facility] has noted that this is stable in size as compared to 2018. She is meant to be receiving routine surveillance but she states she has not followed up in 2 years due to insurance issues at the time. Outpatient oncology follow-up 05/17/2020 As above 05/18/2020 The patient does have several small metastatic lesions in the liver that are likely related to the gastrointestinal stromal tumor. I am not sure if this could increase her transaminases. I will need to review the literature. She clearly is feeling worse. I am going to obtain an abdominal ultrasound because of the new elevation in transaminases. (3) Acute on chronic anemia Is this a current diagnosis for this admission?: Yes Plan: Hemoglobin was 6.7 on admission. Secondary to B12 and iron deficiency. Status post 2 units of PRBCs. H&H have been steady. Outpatient follow-up with hematology 05/17/2020 Hemoglobin was 8.3 yesterday. I will recheck CBC tomorrow. 05/18/2020 Hemoglobin is 8.1. This is not a clinically significant drop. Recheck CBC t omorrow. (4) B12 deficiency Is this a current diagnosis for this admission?: Yes Plan: Secondary to gastrectomy. Continue IM cyanocobalamin. 05/17/2020 Continue B12 supplement (5) Iron (Fe) deficiency anemia Qualifiers: Iron deficiency anemia type: other iron deficiency Qualified Code(s): D50.8 - Other iron deficiency anemias Is this a current diagnosis for this admission?: Yes Plan: She did okay with Injectafer infusion 2 days ago. Premedicated with Benadryl p.o. Follow-up with hematology as outpatient. 05/17/2020 Injectafer as above. Patient will be seeing hematology post discharge. (6) Thrombocytopenia Is this a current diagnosis for this admission?: Yes Plan: Platelet count dropped by more than half. She is not on any heparin or Lovenox for prophylaxis. We will repeat counts 05/17/2020 Platelet count was 74 yesterday. Slowly improving. Recheck CBC tomorrow. 05/18/2020 White blood cell count is 224 today. Thrombocytopenia resolved. (7) Neutropenia Qualifiers: Neutropenia type: other Qualified Code(s): D70.8 - Other neutropenia Is this a current diagnosis for this admission?: Yes Plan: 05/17/2020 Likely related to the acute illness. White blood cell count was 2.7 yesterday. It was 2.8 the test before. We will recheck CBC tomorrow. Hopefully she has had her doni in the white blood cell count will improve 05/18/2020 White blood cell count is 2.8 today. Hopefully it is beginning to trend up. Recheck tomorrow. (8) Transaminitis Is this a current diagnosis for this admission?: Yes Plan: 05/17/2020 Transaminases elevated yesterday. Will recheck tomorrow. Likely related to the acute illness. 05/18/2020 AST is 202, ALT is 119, alkaline phosphatase is 152 with a normal bilirubin. We will need to check and see if the gastrointestinal stromal tumor can cause transaminitis. She has had a gastrectomy and a cholecystectomy. She gets recurrent pancreatitis and they are not sure why. Certainly could be some type of stricture in the common bile ducts. I will obtain an abdominal ultrasound to start. We will see if there is any ductal dilatation. I will also see if the texture of the liver has changed. It was unremarkable other than the probable metastatic lesions when she had her MRI previously. We will repeat blood work tomorrow. - Time Time Spent with patient: 25-34 minutes Medications reviewed and adjusted accordingly: Yes Anticipated Discharge Disposition: Unknown Anticipated Discharge Timeframe: Unknown
[2020-05-18] MEDS ORDERED: MIDAZOLAM 2 MG/2 ML INJ ONE (14:32)
[2020-05-18] MEDS ORDERED: NORMAL SALINE 1000 ML 1,000 ML IV PRN (15:31)
--- NOTE | 2020-05-18 16:24 | RADIOLOGY REPORT (SQ) ---
EXAM DESCRIPTION: PICC INSERTION IMAGES COMPLETED DATE/TIME: 05/18/2020 3:35 pm REASON FOR STUDY: needs iv access for labs, fluids COMPARISON: None. FLUOROSCOPY TIME: 51 seconds of fluoroscopy was used. 1 images saved to PACS. TECHNIQUE: Fluoroscopic and ultrasound guided PICC placement. LIMITATIONS: None. PROCEDURE: After written consent and assessment were obtained, the patient was brought into the fluo roscopy room and placed supine on the table. Ultrasound evaluation of potential access sites were per formed. After successfully identifying a patent right basilic vein, the right arm was prepped and osmar ped in a sterile fashion along with the ultrasound probe. The entry site was anesthetized with 1% lid ocaine. A 21 gauge 7 cm needle was advanced through the skin and into the basilic vein under live ult rasound guidance. An ultrasound image was saved to PACS confirming access site. A .018 guide wire w as then inserted through the needle and into the venous system. The needle was then removed and an 11 blade scalpel was used to make a 1cm skin incision. A 5 fr peel-away sheath was advanced over the w shirley and into the venous system. A measurement was then made using the existing wire and live fluorosc opic guidance. The wire was then removed and trimmed. The PICC was advanced through the peel-away she ath and into the venous system. The peel-away sheath was removed and the catheter was adhered to the patients arm with a stat lock. The catheter was then aspirated and flushed and a sterile bandage was placed over the access site. A fluoroscopic spot image was saved to PACS confirming the catheter tip within the superior vena cava. 3 mg Versed was administered through the IV for control of anxiety. IMPRESSION: SUCCESSFUL PLACEMENT OF A 5 FR DUAL LUMEN 38 CM PICC IN THE RIGHT BASILIC VEIN. COMMENT: Patient medication list reviewed: Yes- Quality ID# 130:Eligible professional attests to doc umenting in the medical record they obtained, updated, or reviewed the patient's current medications. . Quality ID 145: Final reports for procedures using fluoroscopy that document radiation exposure lupis gregg, or exposure time and number of fluorographic images (if radiation exposure indices are not avail able) Quality ID #76: The patient was prepped and draped using maximum sterile barrier technique including cap, mask, sterile gown, sterile gloves, a large sterile sheet, hand hygiene, and 2% Chlorhexidine fo r cutaneous antisepsis. When ultrasound is used, sterile ultrasound techniques are followed requiring sterile gel and sterile probes. TECHNICAL DOCUMENTATION: JOB ID: [id number] 2010 [employer]- All Rights Reserved rev-09/13 Reading location - IP/workstation name: [email or web address]
[2020-05-19] MEDS: OXYCODONE HCL IR 5 MG TABLET PO PRN ×3 (00:27→12:08)
[2020-05-19] MEDS: TRAMADOL HCL 50 MG TABLET PO PRN ×2 (05:56→12:06)
[2020-05-19 06:36] LABS: HEMATOCRIT 23.7 % (36.0-47.0); MEAN CORPUSCULAR HEMOGLOBIN 26.1 pg (27.0-33.4); MEAN CORPUSCULAR HGB CONC 31.4 g/dL (32.0-36.0); MEAN CORPUSCULAR VOLUME 83 fl (80-97); PLATELET COUNT 262 10^3/uL (150-450); RED BLOOD COUNT 2.86 10^6/uL (3.72-5.28); RED CELL DISTRIBUTION WIDTH 24.1 % (11.5-14.0); WHITE BLOOD COUNT 2.7 10^3/uL (4.0-10.5)
[2020-05-19 06:50] LABS: ALBUMIN 3.2 g/dL (3.5-5.0); ALKALINE PHOSPHATASE 113 U/L (38-126); ANION GAP 5 (5-19); ASPARTATE AMINO TRANSFERASE 71 U/L (14-36); BILIRUBIN,DIRECT 0.1 mg/dL (0.0-0.4); BILIRUBIN,TOTAL 0.3 mg/dL (0.2-1.3); BLOOD UREA NITROGEN 6 mg/dL (7-20); CARBON DIOXIDE 26 mmol/L (22-30); CHLORIDE 109 mmol/L (98-107); GLUCOSE 76 mg/dL (75-110); TRIGLYCERIDES 83 mg/dL (<150)
[2020-05-19 06:52] LABS: CALCIUM 8.1 mg/dL (8.4-10.2)
--- NOTE | 2020-05-19 08:01 | RADIOLOGY REPORT (SQ) ---
EXAM DESCRIPTION: U/S ABDOMEN COMPLETE W/DOPPLER IMAGES COMPLETED DATE/TIME: 05/18/2020 7:24 pm REASON FOR STUDY: Abdo Pain New transaminitis COMPARISON: 05/11/2020 TECHNIQUE: Dynamic and static grayscale images acquired of the abdomen and recorded on PACS. Additio nal selected color Doppler and spectral images recorded. Note: Study does not meet criteria for complete doppler/duplex scan LIMITATIONS: None. FINDINGS: PANCREAS: No masses. Visualized pancreatic duct normal caliber. LIVER: Hepatic nodules demonstrated on comparison imaging are not seen to advantage on today's examin ation. LIVER VASCULATURE: Normal directional flow of the main portal vein and hepatic veins. GALLBLADDER: Surgically absent. ULTRASOUND-DETECTED KEANE'S SIGN: Not applicable. INTRAHEPATIC DUCTS AND COMMON DUCT: CBD and intrahepatic ducts normal caliber. No filling defects. INFERIOR VENA CAVA: Normal flow. AORTA: No aneurysm. RIGHT KIDNEY: Normal size. Normal echogenicity. No solid or suspicious masses. No hydronephros is. No calcifications. LEFT KIDNEY: Normal size. Normal echogenicity. No solid or suspicious masses. No hydronephrosi s. No calcifications. SPLEEN: Normal size. No solid masses. PERITONEAL AND PLEURAL SPACES: No ascites or effusions. OTHER: No other significant finding. IMPRESSION: Status post cholecystectomy. No acute findings. TECHNICAL DOCUMENTATION: JOB ID: [id number] [employer]- All Rights Reserved Reading location - IP/workstation name: [email or web address]
[2020-05-19 08:03] LABS: ABSOLUTE LYMPHOCYTES# (MANUAL) 1.1 10^3/uL (0.5-4.7); ABSOLUTE MONOCYTES # (MANUAL) 0.4 10^3/uL (0.1-1.4); BASOPHILS % (MANUAL) 1 % (0-2); EOSINOPHILS % (MANUAL) 7 % (0-6); LYMPHOCYTES % (MANUAL) 41 % (13-45); MONOCYTES % (MANUAL) 16 % (3-13); SEGMENTED NEUTROPHILS % (MAN) 29 % (42-78); TOTAL CELLS COUNTED 100
[2020-05-19 08:04] LABS: ANISOCYTOSIS 3+; HYPOCHROMASIA 1+; OVALOCYTES 1+; PLATELET COMMENT ADEQUATE; POIKILOCYTOSIS 1+; POLYCHROMASIA SLIGHT; TEAR DROP CELLS 1+
[2020-05-19 08:07] LABS: METAMYELOCYTES % (MANUAL) 4 % (0-1); PROMYELOCYTES % (MANUAL) 2 % (0)
[2020-05-19 08:10] LABS: HEMOGLOBIN 7.5 g/dL (12.0-15.5)
--- NOTE | 2020-05-19 08:45 | PDOC DISCHARGE SUMMARY ---
Impression - Admit/DC Date/PCP Admission Date/Primary Care Provider: 05/11/20 13:41 Discharge Date: 05/19/20 - Discharge Diagnosis (1) Acute pancreatitis Is this a current diagnosis for this admission?: Yes (2) Metastasis to liver Is this a current diagnosis for this admission?: Yes (3) Acute on chronic anemia Is this a current diagnosis for this admission?: Yes (4) B12 deficiency Is this a current diagnosis for this admission?: Yes (5) Iron (Fe) deficiency anemia Is this a current diagnosis for this admission?: Yes (6) Thrombocytopenia Is this a current diagnosis for this admission?: Yes (7) Neutropenia Is this a current diagnosis for this admission?: Yes (8) Transaminitis Is this a current diagnosis for this admission?: Yes - Assessment Summary: (1) Acute pancreatitis Qualifiers: Pancreatitis type: unspecified pancreatitis type Acute pancreatitis complication: no infection or necrosis Qualified Code(s): K85.90 - Acute pancreatitis without necrosis or infection, unspecified Is this a current diagnosis for this admission?: Yes Plan: Abdominal pain typical, elevated lipase and CT findings consistent with pancreatitis. Monitor I's and O's No evidence of biliary tract obstruction via labs and imaging. No pancreatic mass noted on MRI. She does not drink excessively but still complete alcohol cessation encouraged Lipase down to 700s from 7000s Tolerating mechanical soft diet. Discontinue IV fluids and morphine. Encourage oral hydration. Tramadol as needed. Antiemetics. 05/17/2020 Pancreatitis-episode of pain after breakfast. She thinks it was the high sugar load in the syrup with her pancakes. We are going to try a low lactose mechanical soft diet with ground meat instead of cut meat. The plan is for discharge tomorrow. 05/18/2020 Abdominal pain is worse today. She actually requested going back to clear liquids. Her transaminases are higher today. Pancreatitis appears to be resolved however. Continue to adjust diet based on clinical status. 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 Oncology at [facility] has noted that this is stable in size as compared to 2018. She is meant to be receiving routine surveillance but she states she has not followed up in 2 years due to insurance issues at the time. Outpatient oncology follow-up 05/17/2020 As above 05/18/2020 The patient does have several small metastatic lesions in the liver that are lik abdullahi related to the gastrointestinal stromal tumor. I am not sure if this could increase her transaminases. I will need to review the literature. She clearly is feeling worse. I am going to obtain an abdominal ultrasound because of the new elevation in transaminases. (3) Acute on chronic anemia Is this a current diagnosis for this admission?: Yes Plan: Hemoglobin was 6.7 on admission. Secondary to B12 and iron deficiency. Status post 2 units of PRBCs. H&H have been steady. Outpatient follow-up with hematology 05/17/2020 Hemoglobin was 8.3 yesterday. I will recheck CBC tomorrow. 05/18/2020 Hemoglobin is 8.1. This is not a clinically significant drop. Recheck CBC tomorrow. (4) B12 deficiency Is this a current diagnosis for this admission?: Yes Plan: Secondary to gastrectomy. Continue IM cyanocobalamin. 05/17/2020 Continue B12 supplement (5) Iron (Fe) deficiency anemia Qualifiers: Iron deficiency anemia type: other iron deficiency Qualified Code(s): D50.8 - Other iron deficiency anemias Is this a current diagnosis for this admission?: Yes Plan: She did okay with Injectafer infusion 2 days ago. Premedicated with Benadryl p.o. Follow-up with hematology as outpatient. 05/17/2020 Injectafer as above. Patient will be seeing hematology post discharge. (6) Thrombocytopenia Is this a current diagnosis for this admission?: Yes Plan: Platelet count dropped by more than half. She is not on any heparin or Lovenox for prophylaxis. We will repeat counts 05/17/2020 Platelet count was 74 yesterday. Slowly improving. Recheck CBC tomorrow. 05/18/2020 White blood cell count is 224 today. Thrombocytopenia resolved. (7) Neutropenia Qualifiers: Neutropenia type: other Qualified Code(s): D70.8 - Other neutropenia Is this a current diagnosis for this admission?: Yes Plan: 05/17/2020 Likely related to the acute illness. White blood cell count was 2.7 yesterday. It was 2.8 the test before. We will recheck CBC tomorrow. Hopefully she has had her doni in the white blood cell count will improve 05/18/2020 White blood cell count is 2.8 today. Hopefully it is beginning to trend up. Recheck tomorrow. (8) Transaminitis Is this a current diagnosis for this admission?: Yes Plan: 05/17/2020 Transaminases elevated yesterday. Will recheck tomorrow. Likely related to the acute illness. 05/18/2020 AST is 202, ALT is 119, alkaline phosphatase is 152 with a normal bilirubin. We will need to check and see if the gastrointestinal stromal tumor can cause transaminitis. She has had a gastrectomy and a cholecystectomy. She gets recurrent pancreatitis and they are not sure why. Certainly could be some type of stricture in the common bile ducts. I will obtain an abdominal ultrasound to start. We will see if there is any ductal dilatation. I will also see if the texture of the liver has changed. It was unremarkable other than the probable metastatic lesions when she had her MRI previously. We will repeat blood work tomorrow. 05/19/2020 The patient is doing better today. Transaminases have come down over 50%. She is definitely doing better on clear/full liquid diet. We discussed extensively the need to hit certain protein intake encarnacion and modifying her intake at home to be most tolerable. Prescriptions for Phenergan, oxycodone and her B12 injections were sent to [facility] pharmacy on [facility]. She will be following up with Dr. Carlitos Kincaid as well as Dr. Barrios. - Additional Information Resuscitation Status: Full Code Referrals: LISA MONTIEL MD [ACTIVE STAFF] - 06/06/20 2:15 pm (CALL THE OFFICE TO CONFIRM YOUR APPOINTMENT) CARLITOS KINCAID DO [NO LOCAL MD] - Prescriptions: Syringe, Disposable, 10 ml [Bulk Syringe] 1 each IM DAILY 14 Days #14 disp.syrin Oxycodone HCl [Oxy-Ir 5 mg Tablet] 5 mg PO Q6HP PRN 7 Days #16 tablet PRN Reason: Abdominal pain Famotidine [Pepcid 20 mg Tablet] 20 mg PO Q12 30 Days #60 tablet Promethazine HCl [Phenergan 25 mg Tablet] 25 mg PO Q6HP PRN 15 Days #30 tablet PRN Reason: Nausea Cyanocobalamin (Vitamin B-12) [Vitamin B-12 Inj 1000 Mcg/1 ml Vial] 1,000 mcg IM DAILY 14 Days #14 vial Home Medications: Acetaminophen [Tylenol] 325 mg PO Q4HP PRN 05/11/20 Diphenhydramine HCl [Benadryl] 50 mg PO QHS 05/11/20 Acetaminophen [Tylenol 325 mg Tablet] 650 mg PO Q4HP PRN tablet 05/19/20 Cyanocobalamin (Vitamin B-12) [Vitamin B-12 Inj 1000 Mcg/1 ml Vial] 1,000 mcg IM DAILY 14 Days #14 vial 05/19/20 Famotidine [Pepcid 20 mg Tablet] 20 mg PO Q12 30 Days #60 tablet 05/19/20 Oxycodone HCl [Oxy-Ir 5 mg Tablet] 5 mg PO Q6HP PRN 7 Days #16 tablet 05/19/20 Promethazine HCl [Phenergan 25 mg Tablet] 25 mg PO Q6HP PRN 15 Days #30 tablet 05/19/20 Syringe, Disposable, 10 ml [Bulk Syringe] 1 each IM DAILY 14 Days #14 disp.syrin 05/19/20 History of Present Illiness History of Present Illness: ANGELLA AGARWAL is a 24 year old female with complex medical history including GIST with liver mets s/p gastrectomy, Skull fracture and Schwanoma s/p briain surgery, Anemia, Pancreatitis [unknown etiology], presents today with complaints of abdominal pain, nausea and vomiting. Symptoms started couple days ago and have progressed. The abdominal pain is across her upper abdomen, sharp, 10/10 at its worst and radiating to the back. No clear alleviating factors. Morphine she received earlier helped. She denies any fever or chills. Denies any abdominal bloating. She has had a few bouts of nonbloody vomiting. Notably she has had a gastrectomy for treatment of her GIST tumor which was diagnosed when she was 9. She had the surgery when she was 11. She had metastasis to the liver but has been undergoing surveillance since. Followed at [facility] but has not followed up in the past 2 to 3 years after losing her insurance coverage. She states that she has had a few bouts of pancreatitis but the etiology has not been discovered and she was told that it was due to abdominal problems and procedures. She denies any GI bleed. She does states she has had history of heavy menstruation but her menstrual periods in the past few months have not been excessive. She states that have hemoglobin used to be quite low in the 7s when she was in her teens but had improved since then. In the ER, patient was noted to have elevated lipase and findings of acute pancreatitis. Abdominal MRI done in the ER also showed liver metastasis but after the ER provider discussed with oncology at [facility], they notified her that the size was still stable. Hospital Course Hospital Course: See details above. Briefly this unfortunate patient with complex history and who is status post gastrectomy had another episode of pancreatitis. She reports that the exact etiology of the pancreatitis has not been discovered despite specialty care. She was doing well and was hoping to discharge 2 days ago when there was an unexpected rise in her transaminases. Yesterday they were even higher. We did modify her diet and administer some IV fluids and today they are greatly improved. We had a long discussion about how to transition to the outpatient setting. She will be seeing hematology and establishing with primary care after discharge. Physical Exam Vital Signs: Temp Pulse Resp BP Pulse Ox 97.8 F 73 18 114/69 98 05/19/20 07:31 05/19/20 07:31 05/19/20 07:31 05/19/20 07:31 05/19/20 07:31 Intake & Output 05/18/20 05/19/20 05/20/20 06:59 06:59 06:59 Intake Total 540 640 Balance 540 640 Weight 55.8 kg 56.3 kg General appearance: PRESENT: no acute distress, cooperative Teeth exam: PRESENT: poor dentation Respiratory exam: PRESENT: clear to auscultation christina, symmetrical, unlabored. ABSENT: rales, rhonchi, tachypnea, wheezes Cardiovascular exam: PRESENT: RRR, +S1, +S2 GI/Abdominal exam: PRESENT: normal bowel sounds, soft, tenderness - Still some discomfort across the lower abdomen. Rectal exam: PRESENT: deferred Gentrourinary exam: ABSENT: indwelling catheter Extremities exam: PRESENT: other - PICC line right arm. ABSENT: pedal edema Musculoskeletal exam: PRESENT: other - Decreased muscle mass Neurological exam: PRESENT: alert, awake, oriented to person, oriented to place, oriented to time, oriented to situation, CN II-XII grossly intact. ABSENT: altered, motor sensory deficit Psychiatric exam: PRESENT: appropriate affect. ABSENT: agitated, anxious Focused psych exam: ABSENT: delusional, paranoid, restlessness Results Laboratory Results: WBC 2.7 10^3/uL (4.0-10.5) L 05/19/20 05:45 RBC 2.86 10^6/uL (3.72-5.28) L 05/19/20 05:45 Hgb 7.5 g/dL (12.0-15.5) L 05/19/20 05:45 Hct 23.7 % (36.0-47.0) L 05/19/20 05:45 MCV 83 fl (80-97) 05/19/20 05:45 MCH 26.1 pg (27.0-33.4) L 05/19/20 05:45 MCHC 31.4 g/dL (32.0-36.0) L 05/19/20 05:45 RDW 24.1 % (11.5-14.0) H 05/19/20 05:45 Plt Count 262 10^3/uL (150-450) 05/19/20 05:45 Lymph % (Auto) Not Reportable 05/19/20 05:45 Nelson % (Auto) Not Reportable 05/19/20 05:45 Eos % (Auto) Not Reportable 05/19/20 05:45 Baso % (Auto) Not Reportable 05/19/20 05:45 Reticulocyte # 0.020 10^6/uL (0.028-0.122) L 05/11/20 02:56 Absolute Neuts (auto) Not Reportable 05/19/20 05:45 Absolute Lymphs (auto) Not Reportable 05/19/20 05:45 Absolute Monos (auto) Not Reportable 05/19/20 05:45 Absolute Eos (auto) Not Reportable 05/19/20 05:45 Absolute Basos (auto) Not Reportable 05/19/20 05:45 Total Counted 100 05/19/20 05:45 Seg Neutrophils % Not Reportable 05/19/20 05:45 Seg Neuts % (Manual) 29 % (42-78) L 05/19/20 05:45 Lymphocytes % (Manual) 41 % (13-45) 05/19/20 05:45 Atypical Lymphs % 1 % (0) 05/16/20 04:19 Monocytes % (Manual) 16 % (3-13) H 05/19/20 05:45 Eosinophils % (Manual) 7 % (0-6) H 05/19/20 05:45 Basophils % (Manual) 1 % (0-2) 05/19/20 05:45 Metamyelocytes % 4 % (0-1) H 05/19/20 05:45 Promyelocytes % 2 % (0) H 05/19/20 05:45 Abs Neuts (Manual) 0.9 10^3/uL (1.7-8.2) L 05/19/20 05:45 Abs Lymphs (Manual) 1.1 10^3/uL (0.5-4.7) 05/19/20 05:45 Abs Monocytes (Manual) 0.4 10^3/uL (0.1-1.4) 05/19/20 05:45 Absolute Eos (Manual) 0.2 10^3/uL (0.0-0.6) 05/19/20 05:45 Abs Basophils (Manual) 0.0 10^3/uL (0.0-0.2) 05/19/20 05:45 Platelet Estimate Cancelled 05/18/20 06:49 Platelet Comment ADEQUATE 05/19/20 05:45 Polychromasia SLIGHT 05/19/20 05:45 Hypochromasia 1+ 05/19/20 05:45 Poikilocytosis 1+ 05/19/20 05:45 Anisocytosis 3+ 05/19/20 05:45 Microcytosis SLIGHT 05/16/20 04:19 Tear Drop Cells 1+ 05/19/20 05:45 Ovalocytes 1+ 05/19/20 05:45 Retic Count (auto) 0.74 % (0.66-2.85) 05/11/20 02:56 PT 13.1 SEC (11.4-15.4) 05/13/20 08:16 INR 0.97 05/13/20 08:16 APTT 30.0 SEC (23.5-35.8) 05/13/20 08:16 Fibrinogen 348 mg/dL (209-497) 05/13/20 08:16 D-Dimer 16.78 ug/mL (0.00-0.50) H 05/13/20 08:16 Sodium 140.0 mmol/L (137-145) 05/19/20 05:45 Potassium 4.0 mmol/L (3.6-5.0) 05/19/20 05:45 Chloride 109 mmol/L (98-107) H 05/19/20 05:45 Carbon Dioxide 26 mmol/L (22-30) 05/19/20 05:45 Anion Gap 5 (5-19) 05/19/20 05:45 BUN 6 mg/dL (7-20) L 05/19/20 05:45 Creatinine 0.51 mg/dL (0.52-1.25) L 05/19/20 05:45 Est GFR ( Amer) > 60 (>60) 05/19/20 05:45 Est GFR (MDRD) Non-Af > 60 (>60) 05/19/20 05:45 Glucose 76 mg/dL (75-110) 05/19/20 05:45 Calcium 8.1 mg/dL (8.4-10.2) L 05/19/20 05:45 Phosphorus 2.4 mg/dL (2.5-4.5) L 05/12/20 07:41 Magnesium 2.1 mg/dL (1.6-2.3) 05/19/20 05:45 Iron 215.9 ug/dL (37-170) H 05/11/20 02:56 TIBC 507 ug/dL (250-450) H 05/11/20 02:56 % Saturation 43 % 05/11/20 02:56 Ferritin 8.40 ng/mL (6.2-137.0) 05/11/20 02:56 Total Bilirubin 0.3 mg/dL (0.2-1.3) 05/19/20 05:45 Direct Bilirubin 0.1 mg/dL (0.0-0.4) 05/19/20 05:45 Neonat Total Bilirubin Not Reportable 05/19/20 05:45 Neonat Direct Bilirubin Not Reportable 05/19/20 05:45 Neonat Indirect Bili Not Reportable 05/19/20 05:45 GGT 176 U/L (8-78) H 05/19/20 05:45 AST 71 U/L (14-36) H 05/19/20 05:45 ALT 71 U/L (<35) H 05/19/20 05:45 Alkaline Phosphatase 113 U/L (38-126) 05/19/20 05:45 Total Protein 6.0 g/dL (6.3-8.2) L 05/19/20 05:45 Albumin 3.2 g/dL (3.5-5.0) L 05/19/20 05:45 Triglycerides 83 mg/dL (<150) 05/19/20 05:45 Lipase 749.0 U/L (23-300) H 05/16/20 04:19 Vitamin B12 < 159.0 pg/mL (239-931) L 05/11/20 02:56 Folate 6.46 ng/mL (>2.76) 05/11/20 02:56 TSH 2.11 uIU/mL (0.47-4.68) 05/12/20 07:41 Urine Color YELLOW 05/11/20 05:35 Urine Appearance CLEAR 05/11/20 05:35 Urine pH 6.0 (5.0-9.0) 05/11/20 05:35 Ur Specific [place] 1.028 05/11/20 05:35 Urine Protein 100 mg/dL (NEGATIVE) H 05/11/20 05:35 Urine Glucose (UA) NEGATIVE mg/dL (NEGATIVE) 05/11/20 05:35 Urine Ketones 80 mg/dL (NEGATIVE) H 05/11/20 05:35 Urine Blood NEGATIVE (NEGATIVE) 05/11/20 05:35 Urine Nitrite NEGATIVE (NEGATIVE) 05/11/20 05:35 Urine Bilirubin NEGATIVE (NEGATIVE) 05/11/20 05:35 Urine Urobilinogen 4.0 mg/dL (<2.0) H 05/11/20 05:35 Ur Leukocyte Esterase NEGATIVE (NEGATIVE) 05/11/20 05:35 Urine WBC (Auto) 1 /HPF 05/11/20 05:35 Urine RBC (Auto) 1 /HPF 05/11/20 05:35 Squamous Epi Cells Auto 1 /HPF 05/11/20 05:35 Urine Mucus (Auto) RARE /LPF 05/11/20 05:35 Urine Ascorbic Acid NEGATIVE (NEGATIVE) 05/11/20 05:35 POC Stool Occult Blood NEGATIVE (NEGATIVE) 05/11/20 05:59 Slides for Path Review Cancelled 05/18/20 06:49 Blood Type A POSITIVE 05/11/20 06:25 Antibody Screen NEGATIVE 05/11/20 06:25 Crossmatch See Detail 05/11/20 06:25 Impressions: Abdomen/Pelvis CT 05/11/20 04:44 IMPRESSION: 1. Findings most consistent with severe changes of acute pancreatitis with extensive stranding and fluid in the abdomen extending down into the pelvis. This is likely secondarily inflaming loops of bowel in the abdomen even into the right lower quadrant rather than a primary bowel abnormality. Please correlate with patient's amylase and lipase values. 2. No other acute abnormality. Abdomen MRI 05/11/20 07:58 IMPRESSION: 1. Small liver nodules suspicious for metastatic disease. These are too small for CT-guided biopsy. Trace of ascites. 2. Acute pancreatitis. Abdomen Ultrasound 05/18/20 00:00 IMPRESSION: Status post cholecystectomy. No acute findings. PICC Line Insertion 05/18/20 00:00 IMPRESSION: SUCCESSFUL PLACEMENT OF A 5 FR DUAL LUMEN 38 CM PICC IN THE RIGHT BASILIC VEIN. Plan Health Concerns: Patient with gastrointestinal stromal cell tumor who is already status post gastrectomy. They are following four small liver masses as well. Protein intake and diet in general are challenges for her. Will benefit from establishing with hematology, primary care and ongoing specialty care. Plan of Treatment: As above. Slowly advance diet with increased protein supplements to meet a goal of 55 to 65 g of protein daily. Follow-up with hematology and establish with primary care. Goals: Stability of diet intake maintaining good nutritional status. Close monitoring of liver lesions and any other complications arising from her underlying mal ignancy. Time Spent: Greater than 30 Minutes Stroke Is this a Stroke Patient?: No Acute Heart Failure Is this a Heart Failure Patient?: No
[2020-05-19] MEDS: CYANOCOBALAMIN (VITAMIN B-12) INJ 1000 MCG/1 ML VIAL IM SCH (11:07)
[2020-05-19] MEDS: FAMOTIDINE 20 MG TABLET PO SCH (11:07)
[2020-05-19 13:09] LABS: PATH REVIEW PATHOLOGIST REVIEWED
[2020-05-19 14:00] VITALS: BP 121/89
== END 2020-05-19 14:57 | disposition home or self-care (01) | DRG 439 ==
LOC: ER 02:44 → EH 13:41 → 4S 16:16 → 2N 05-15 15:05
PROVIDERS: ADMIT Internal Medicine; ATTEND Hospitalist
PROC: 30233N1 Transfusion of Nonautologous Red Blood Cells into Peripheral Vein, Percutaneous Approach (ICD-10-PCS; 2020-05-11)
PROC: 02HV33Z Insertion of Infusion Device into Superior Vena Cava, Percutaneous Approach (ICD-10-PCS; principal; 2020-05-18)
DX: K85.90 Acute pancreatitis without necrosis or infection, unspecified (principal); C49.A0 Gastrointestinal stromal tumor, unspecified site; C78.7 Secondary malignant neoplasm of liver and intrahepatic bile duct; E53.8 Deficiency of other specified B group vitamins; D69.6 Thrombocytopenia, unspecified; R74.01 Elevation of levels of liver transaminase levels; D50.8 Other iron deficiency anemias; D70.8 Other neutropenia; Z79.899 Other long term (current) drug therapy; Z90.3 Acquired absence of stomach [part of]; Z80.1 Family history of malignant neoplasm of trachea, bronchus and lung; Z88.8 Allergy status to other drugs, medicaments and biological substances; Z88.6 Allergy status to analgesic agent; Z91.041 Radiographic dye allergy status; M19.90 Unspecified osteoarthritis, unspecified site; Z85.841 Personal history of malignant neoplasm of brain
CPT/HCPCS: 36415; 36430; 36573; 74176; 74183; 76700; 80053; 81001; 82270; 82607; 82728; 82746; 82977; 83540; 83550; 83690; 83735; 84100; 84443; 84478; 85025; 85027; 85045; 85379; 85384; 85610; 85730; 86850; 86900; 86901; 86920; 93976; 96361; 96374; 96375; 96376; 99285; A9576; J1200; J1439; J1642; J1720; J2250; J2270; J2550; J3420; J3490; J7030; J7050; J7120; P9016; S0028